=== PATIENT | female | born 1955 | race Caucasian/White ===

== ENCOUNTER 2017-03-27 10:06 | Emergency (ER) | payer OTHER, MEDICAID ==
--- NOTE | 2017-03-27 10:29 | EDPHY ---
H & P Stated Complaint: sharp head pain off and on starting last night Time Seen by Provider: 03/27/17 10:09 HPI/ROS: Chief Complaint: Pain in head HPI: 61-year-old woman started having pain in the right side of her head just above and in front of her right here last night. Pain initially started coming every 15 minutes or so. It last few seconds and completely goes away. It feels like a sharp stabbing pain at worst a 10/10. Sometimes feels she might be getting some tearing in that eye but has not. Pain is persisted till today. It is now occurring anywhere from every 5 minutes to 15 minutes. She has not have a history of similar pain in the past. In between episodes she is completely at her baseline. No nausea or vomiting. No vision or hearing changes. No skin rashes. No falls or injuries. ROS: 10 point Review of Systems is negative except as noted in the HPI. PMH: Hypertension Social History: No smoking, no alcohol, no recreational drug use Family History: non-contributory Physical Exam: Gen: Awake, Alert, No Distress HEENT: Nose: no rhinorrhea Eyes: PERRLA, EOMI Mouth: Moist mucosa Neck: Supple, no JVD Chest: nontender, lungs clear to auscultation Heart: S1, S2 normal, no murmur Abd: Soft, non-tender, no guarding Back: no CVA tenderness, no midline tenderness Ext: no edema, non-tender Skin: no rash Neuro: CN II-XII intact, Sensation grossly intact, Strength 5/5 in bilateral upper and lower extremities - Personal History Current Tetanus/Diphtheria Vaccine: Yes - Medical/Surgical History Hx Asthma: No Hx Chronic Respiratory Disease: No Hx Diabetes: No Hx Cardiac Disease: No Hx Renal Disease: Yes Hx Cirrhosis: No Hx Alcoholism: No Hx HIV/AIDS: No Hx Splenectomy or Spleen Trauma: No Other PMH: kidney failure 2013,anxiety and htn. surg-ankle,tubal and oral - Social History Smoking Status: Current every day smoker Constitutional: Initial Vital Signs Temperature (C) 36.9 C 03/27/17 10:09 Heart Rate 84 03/27/17 10:09 Respiratory Rate 18 03/27/17 10:09 Blood Pressure 177/112 H 03/27/17 10:09 O2 Sat (%) 95 03/27/17 10:09 O2 Delivery Mode Room Air Allergies/Adverse Reactions: Sulfa (Sulfonamide Antibiotics) Allergy (Mild, Verified 03/27/17 10:13) Other-Enter Comments Home Medications: Medication Instructions Recorded Carbamazepine 100 mg PO BID #14 cpmp.12hr 03/27/17 HYDROCODONE BIT/ACETAMINOPHEN 03/27/17 Propranolol HCl 03/27/17 Medical Decision Making ED Course/Re-evaluation: 61-year-old woman presenting with pain consistent with trigeminal neuralgia. She is having sharp shooting pains which last few seconds that ankle completely away. I do not suspect acute intracranial bleed as the pain comes and goes and she has complete resolution between episodes. She has not have any risk factors for bleed. No symptoms suggestive of infection. She is pain-free during my evaluation. I will start her on carbamazepine and have her follow up with primary care physician early next week. She might need a referral to Neurology. She will return for any worsening symptoms. Departure - Departure Disposition: Home, Routine, Self-Care Clinical Impression: Trigeminal neuralgia Condition: Good Instructions: Trigeminal Neuralgia (ED) Additional Instructions: You may start taking the carbamazepine twice a day if you continue to have shooting headaches. Follow up with primary care physician on Friday for re-evaluation. Return to the emergency department for increasing pain, pain that persists, nausea, vomiting, confusion, or any other concerns. Referrals: Ignacio Caceres MD [Primary Care Provider] - As per Instructions Prescriptions: Carbamazepine 100 mg PO BID #14 cpmp.12hr
[2017-03-27 10:43] VITALS: BP 164/100; PULSE 84; RESP 18; TEMP 98.4; O2SAT 95
== END 2017-03-27 10:33 | disposition home or self-care (01) ==
LOC: CED 10:06
DX: G50.0 Trigeminal neuralgia (principal); I10 Essential (primary) hypertension; F17.200 Nicotine dependence, unspecified, uncomplicated

== ENCOUNTER 2017-05-31 14:27 | Emergency (ER) | payer OTHER, MEDICAID ==
[2017-05-31 14:46] VITALS: RESP 16; O2SAT 90
[2017-05-31] MEDS ORDERED: NS 1,000 ML IV ONE (15:11)
[2017-05-31 15:32] LABS: % IMMATURE GRANULYOCYTES 0.2 % (0.0-1.1); ABSOLUTE IMMATURE GRANULOCYTES 0.01 10^3/uL (0.00-0.10); ADD DIFF? NO; ADD MORPH? NO; ADD SCAN? NO; ATYPICAL LYMPHOCYTE FLAG 0 (0-99); FRAGMENT RBC FLAG 0 (0-99); HEMATOCRIT 46.6 % (38.0-47.0); LEFT SHIFT FLG 0 (0-99); LIPEMIA HEMOLYSIS FLAG 90 (0-99); MEAN CELL HEMOGLOBIN 33.9 pg (27.9-34.1); MEAN CELL HEMOGLOBIN CONCENTR. 34.3 g/dL (32.4-36.7); MEAN CELL VOLUME 98.7 fL (81.5-99.8); MEAN PLATELET VOLUME 8.6 fL (8.7-11.7); PLATELET CLUMPS FLAG 0 (0-99); PLATELET COUNT 291 10^3/uL (150-400); RED BLOOD CELL COUNT 4.72 10^6/uL (4.18-5.33); RED CELL DISTRIBUTION WIDTH 12.8 % (11.5-15.2)
[2017-05-31 15:45] LABS: CREATININE 2.4 mg/dL (0.6-1.0); GLOMERULAR FILTRATION RATE 20; GLUCOSE 112 mg/dL (70-100); POTASSIUM 3.1 mEq/L (3.5-5.2); SODIUM 140 mEq/L (134-144)
--- NOTE | 2017-05-31 15:46 | EDPHY ---
HPI/HX/ROS/PE/MDM Narrative: CHIEF COMPLAINT: "I would like to get my creatinine checked." HPI: The patient is a 61-year-old female who tells me that she had a history of what sounds like acute renal insufficiency approximately 8 years ago. Yesterday she noted that she was more tired than usual and would like to get her creatinine checked today. She denies any flank pain, change in urination or pain with urination. She recently completed a course of antibiotics which sounds like Keflex, given to her by her primary care physician for 2 small ulcerations on her face that have been present for 1 month. Additionally, the patient complains of cracks in the skin of her hands secondary to dry weather which have been present for months as well. REVIEW OF SYSTEMS: Aside from elements discussed in the HPI, a comprehensive 10-point review of systems was reviewed and is negative. PMH: Includes high blood pressure, history of kidney problems. Chart review indicates history of bulimia and suspected diuretic abuse. SOCIAL HISTORY: Denies alcohol or drug abuse. PHYSICAL EXAM: General:Patient is alert, in no acute distress. ENT:Eyes are normal to inspection. ENT inspection normal. Neck: Normal inspection. Full range of motion. Respiratory:No respiratory distress. Breath sounds normal bilaterally. Cardiovascular: Regular rate and rhythm. Strong peripheral pulses. Normal cap refill. Abdomen:The abdomen is nontender to palpation. There are no peritoneal signs. There are normal bowel sounds. Back: Normal to inspection. No tenderness to palpation. Skin: Multiple cracks noted in scan on fingers consistent with dried out skin. 2 small ulcerations are noted on the patient's cheek but are largely covered by makeup. There is no tenderness nor any evidence of discharge or fluctuance. Extremities: Normal appearance. Full range of motion. Neuro: Oriented x3. Normal motor function. Normal sensory function. ED Course: Initial labs reveal elevated creatinine and decreased potassium. She was treated with 1L IVNS. I had an extensive discussion with her regarding treatment, and offered her further hydration and re-check of creatinine here tonight, with potential discharge home if improved or admission to the hospital if not. The patient declines this however, and feels that she would like to be admitted overnight to the hospital. She declines admission to [facility], but is willing to go to [facility]. I called there and spoke with Dr. Fontaine, hospitalist, who has agreed to accept this patient. On re-evaluation, vitals are stable. 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 Her previous chart indicates history of bulimia and there was suspicion of diuretic abuse. - Data Points Laboratory Results: Laboratory Results 05/31/17 15:24 05/31/17 15:24 05/31/17 05/31/17 15:24 15:24 WBC 5.45 10^3/uL 10^3/uL (3.80-9.50) RBC 4.72 10^6/uL 10^6/uL (4.18-5.33) Hgb 16.0 g/dL g/dL (12.6-16.3) Hct 46.6 % % (38.0-47.0) MCV 98.7 fL fL (81.5-99.8) MCH 33.9 pg pg (27.9-34.1) MCHC 34.3 g/dL g/dL (32.4-36.7) RDW 12.8 % % (11.5-15.2) Plt Count 291 10^3/uL 10^3/uL (150-400) MPV 8.6 fL L fL (8.7-11.7) Neut % (Auto) 44.8 % % (39.3-74.2) Lymph % (Auto) 42.8 % % (15.0-45.0) [place] % (Auto) 9.2 % % (4.5-13.0) Eos % (Auto) 2.4 % % (0.6-7.6) Baso % (Auto) 0.6 % % (0.3-1.7) Nucleat RBC Rel Count 0.0 % % (0.0-0.2) Absolute Neuts (auto) 2.45 10^3/uL 10^3/uL (1.70-6.50) Absolute Lymphs (auto) 2.33 10^3/uL 10^3/uL (1.00-3.00) Absolute Monos (auto) 0.50 10^3/uL 10^3/uL (0.30-0.80) Absolute Eos (auto) 0.13 10^3/uL 10^3/uL (0.03-0.40) Absolute Basos (auto) 0.03 10^3/uL 10^3/uL (0.02-0.10) Absolute Nucleated RBC 0.00 10^3/uL 10^3/uL (0-0.01) Immature Gran % 0.2 % % (0.0-1.1) Immature Gran # 0.01 10^3/uL 10^3/uL (0.00-0.10) Sodium 140 mEq/L mEq/L (134-144) Potassium 3.1 mEq/L L mEq/L (3.5-5.2) Chloride 73 mEq/L L mEq/L (97-110) Carbon Dioxide > 40 mEq/l H* mEq/l (22-31) Anion Gap 27 mEq/L H mEq/L (8-16) BUN 65 mg/dL H mg/dL (7-23) Creatinine 2.4 mg/dL H mg/dL (0.6-1.0) Estimated GFR 20 Glucose 112 mg/dL H mg/dL (70-100) Calcium 10.0 mg/dL mg/dL (8.5-10.4) Medications Given: Discontinued Medications Sodium Chloride (Ns) 1,000 mls @ 0 mls/hr IV EDNOW ONE; Wide Open PRN Reason: Protocol Stop: 05/31/17 15:12 Last Admin: 05/31/17 15:38 Dose: 1,000 mls General Time Seen by Provider: 05/31/17 14:57 Initial Vital Signs: Initial Vital Signs Temperature (C) 36.4 C 05/31/17 14:43 Heart Rate 70 05/31/17 14:43 Respiratory Rate 16 05/31/17 14:43 Blood Pressure 102/62 05/31/17 14:43 O2 Sat (%) 90 L 05/31/17 14:43 O2 Delivery Mode Room Air Allergies/Adverse Reactions: Sulfa (Sulfonamide Antibiotics) Allergy (Mild, Verified 03/27/17 10:13) Other-Enter Comments Home Medications: Medication Instructions Recorded HYDROCODONE BIT/ACETAMINOPHEN 03/27/17 Propranolol HCl 03/27/17 Departure - Departure Disposition: Acute Care Hospital Not [facility] Clinical Impression: Acute kidney injury, Hypokalemia Condition: Fair Referrals: Ignacio Caceres MD [Primary Care Provider] - As per Instructions
[2017-05-31 15:48] LABS: ANION GAP 27 mEq/L (8-16)
[2017-05-31 15:57] LABS: CARBON DIOXIDE > 40 mEq/l (22-31); CHLORIDE 73 mEq/L (97-110)
[2017-05-31 17:35] VITALS: BP 116/75; PULSE 68; TEMP 98.1
== END 2017-05-31 17:15 | disposition short-term general hospital (02) ==
LOC: CED 14:27
DX: N17.9 Acute kidney failure, unspecified (principal); E87.6 Hypokalemia; E86.9 Volume depletion, unspecified
CPT/HCPCS: 80048-PO; 85025-PO

== ENCOUNTER 2017-08-02 15:00 | Emergency (ER) | payer OTHER, MEDICAID ==
[2017-08-02 15:12] VITALS: RESP 16; TEMP 97.5
--- NOTE | 2017-08-02 15:14 | CPEKG ---
Heart Rate: 72 RR Interval: 833 P-R Interval: 208 QRSD Interval: 84 QT Interval: 432 QTC Interval: 473 P Handley: 71 QRS Handley: 23 T Wave Handley: -10 EKG Severity - ABNORMAL ECG - EKG Impression: SINUS RHYTHM EKG Impression: PROBABLE LEFT ATRIAL ABNORMALITY EKG Impression: NONSPECIFIC T ABNORMALITIES, LATERAL LEADS Electronically Signed By: Ruslan Aaron 04-Aug-2017 12:28:09
[2017-08-02] MEDS ORDERED: NS 1,000 ML IV ONE ×2 (15:48→15:50)
[2017-08-02 15:54] LABS: PLATELET COUNT 307 10^3/uL (150-400)
--- NOTE | 2017-08-02 16:48 | EDPHY ---
H & P Time Seen by Provider: 08/02/17 15:04 HPI/ROS: 62-year-old male presents complaining of approximately 4 days of dizziness, additionally with some cough. She states she has chills though admits she is always cold. She denies fevers she denies chest pain. Patient states her current medications are only propanolol 60 mg three times daily and hydrocodone that she takes for chronic back pain. Denies nausea, vomiting, diarrhea. She states she was [facility]. Review of systems As per HPI General no fever no chills no weakness HEENT no eye pain no eye discharge. No eye redness, no sore throat Respiratory positive cough, no shortness of breath Cardiac no chest pain, no peripheral edema GI no abdominal pain, no diarrhea, no constipation, no nausea, no vomiting no flank pain, no hematuria, no dysuria Musculoskeletal no myalgias, no joint pain Heme no easy bruising, no easy bleeding Endo no polyuria, no polydipsia Skin no rashes, no pruritus Neuro no syncope, positive dizziness no headaches Psych is no suicidal ideation, no homicidal ideation Past Medical/Surgical History: Hypertension Renal insufficiency Social History: Smokes cigarettes daily Smoking Status: Current every day smoker Physical Exam: 62-year-old female cachectic, appears older than stated age Hypertensive, however nontoxic appearance, afebrile HEENT atraumatic normocephalic, extraocular muscles intact, anicteric Oropharynx negative for erythema negative exudate, tolerating her own secretions Neck supple no meningismus Lungs clear to auscultation bilaterally Heart regular rate and rhythm without murmur rub or gallop Abdomen nondistended normoactive bowel sounds soft nontender Back no CVA tenderness, no step-offs, no spinal tenderness Extremities no cyanosis clubbing or edema Neuro alert and oriented, no focal deficits Constitutional: Initial Vital Signs Temperature (C) 36.4 C 08/02/17 15:07 Heart Rate 72 08/02/17 15:07 Respiratory Rate 16 08/02/17 15:07 Blood Pressure 98/60 L 08/02/17 15:07 O2 Sat (%) 92 08/02/17 15:07 O2 Delivery Mode Nasal Cannula O2 (L/minute) 2 Allergies/Adverse Reactions: Sulfa (Sulfonamide Antibiotics) Allergy (Mild, Verified 08/02/17 15:13) Other-Enter Comments Home Medications: Medication Instructions Recorded HYDROCODONE BIT/ACETAMINOPHEN 03/27/17 Propranolol HCl 03/27/17 Medical Decision Making - Diagnostics Imaging Results: Imaging Impressions Chest X-Ray 08/02/17 15:49 Impression: Stable and normal. ED Course/Re-evaluation: Patient seen and evaluated for dizziness, noted to be hypotensive. Given IV fluids 2 L normal saline Labs sent CBC within normal limits Influenza negative CMP markedly abnormal With an elevated creatinine to 3.7 Lactate within normal limits Chest x-ray no consolidation Impression Acute kidney injury Severe dehydration Plan Transfer to be admitted at [facility]. Discussed with Dr Isela Nair. Pt was to be admitted, we were awaiting a bed assignment at [facility] when she decided she needed to leave urgently. She refused admission, and signed AMA. TIMUR Kong contacted [facility] to make them aware of this change. We encouraged the patient to seek care tonight if possible. Differential Diagnosis: dehydration, kendrick, sepsis, orthostasis - Data Points Laboratory Results: Laboratory Results 08/02/17 15:22 08/02/17 15:22 08/02/17 08/02/17 08/02/17 17:00 15:50 15:50 WBC RBC Hgb Hct MCV MCH MCHC RDW Plt Count MPV Neut % (Auto) Lymph % (Auto) Cook % (Auto) Eos % (Auto) Baso % (Auto) Nucleat RBC Rel Count Absolute Neuts (auto) Absolute Lymphs (auto) Absolute Monos (auto) Absolute Eos (auto) Absolute Basos (auto) Absolute Nucleated RBC Immature Gran % Immature Gran # VBG Lactic Acid 1.8 mmol/L mmol/L (0.7-2.1) Sodium Potassium Chloride Carbon Dioxide Anion Gap BUN Creatinine Estimated GFR Glucose Calcium Magnesium Total Bilirubin AST ALT Alkaline Phosphatase Creatine Kinase Troponin I Total Protein Albumin TSH Urine Color YELLOW Urine Appearance CLEAR Urine pH 8.0 H (5.0-7.5) Ur Specific [place] 1.010 (1.002-1.030) Urine Protein NEGATIVE (NEGATIVE) Urine Ketones NEGATIVE (NEGATIVE) Urine Blood NEGATIVE (NEGATIVE) Urine Nitrate NEGATIVE (NEGATIVE) Urine Bilirubin NEGATIVE (NEGATIVE) Urine Urobilinogen 0.2 EU EU (0.2-1.0) Ur Leukocyte Esterase NEGATIVE (NEGATIVE) Urine Glucose NEGATIVE (NEGATIVE) Influenza A,B Rapid NEGATIVE FOR FLU (NEGATIVE) 08/02/17 08/02/17 08/02/17 15:22 15:22 15:22 WBC 4.69 10^3/uL 10^3/uL (3.80-9.50) RBC 4.44 10^6/uL 10^6/uL (4.18-5.33) Hgb 15.2 g/dL g/dL (12.6-16.3) Hct 44.0 % % (38.0-47.0) MCV 99.1 fL fL (81.5-99.8) MCH 34.2 pg H pg (27.9-34.1) MCHC 34.5 g/dL g/dL (32.4-36.7) RDW 13.2 % % (11.5-15.2) Plt Count 307 10^3/uL 10^3/uL (150-400) MPV 9.1 fL fL (8.7-11.7) Neut % (Auto) 67.7 % % (39.3-74.2) Lymph % (Auto) 21.7 % % (15.0-45.0) Cook % (Auto) 8.5 % % (4.5-13.0) Eos % (Auto) 1.7 % % (0.6-7.6) Baso % (Auto) 0.2 % L % (0.3-1.7) Nucleat RBC Rel Count 0.0 % % (0.0-0.2) Absolute Neuts (auto) 3.17 10^3/uL 10^3/uL (1.70-6.50) Absolute Lymphs (auto) 1.02 10^3/uL 10^3/uL (1.00-3.00) Absolute Monos (auto) 0.40 10^3/uL 10^3/uL (0.30-0.80) Absolute Eos (auto) 0.08 10^3/uL 10^3/uL (0.03-0.40) Absolute Basos (auto) 0.01 10^3/uL L 10^3/uL (0.02-0.10) Absolute Nucleated RBC 0.00 10^3/uL 10^3/uL (0-0.01) Immature Gran % 0.2 % % (0.0-1.1) Immature Gran # 0.01 10^3/uL 10^3/uL (0.00-0.10) VBG Lactic Acid Sodium 137 mEq/L mEq/L (135-145) Potassium 3.3 mEq/L L mEq/L (3.5-5.2) Chloride 67 mEq/L L mEq/L (97-110) Carbon Dioxide 47 mEq/l H* mEq/l (22-31) Anion Gap 23 mEq/L H mEq/L (8-16) BUN 85 mg/dL H mg/dL (7-23) Creatinine 3.6 mg/dL H mg/dL (0.6-1.0) Estimated GFR 13 Glucose 126 mg/dL H mg/dL (70-100) Calcium 9.4 mg/dL mg/dL (8.5-10.4) Magnesium 2.2 mg/dL mg/dL (1.6-2.3) Total Bilirubin 0.8 mg/dL mg/dL (0.1-1.4) AST 26 IU/L IU/L (14-46) ALT 32 IU/L IU/L (9-52) Alkaline Phosphatase 88 IU/L IU/L (38-126) Creatine Kinase 54 IU/L IU/L (0-156) Troponin I < 0.012 ng/mL ng/mL (0.000-0.034) Total Protein 7.9 g/dL g/dL (6.3-8.2) Albumin 4.3 g/dL g/dL (3.5-5.0) TSH 0.571 uIU/mL uIU/mL (0.465-4.680) Urine Color Urine Appearance Urine pH Ur Specific [place] Urine Protein Urine Ketones Urine Blood Urine Nitrate Urine Bilirubin Urine Urobilinogen Ur Leukocyte Esterase Urine Glucose Influenza A,B Rapid Medications Given: Discontinued Medications Sodium Chloride (Ns) 1,000 mls @ 0 mls/hr IV ONCE ONE PRN Reason: Wide Open Stop: 08/02/17 15:49 Last Admin: 08/02/17 15:30 Dose: 1,000 mls Sodium Chloride (Ns) 1,000 mls @ 0 mls/hr IV ONCE ONE PRN Reason: Wide Open Stop: 08/02/17 15:51 Last Admin: 08/02/17 16:32 Dose: 1,000 mls Departure - Departure Disposition: Against Medical Advice Clinical Impression: KENDRICK (acute kidney injury) Condition: Fair Referrals: Ignacio aCceres MD [Primary Care Provider] - As per Instructions
[2017-08-02 18:16] VITALS: BP 93/61; PULSE 70; O2SAT 96
== END 2017-08-02 18:38 | disposition left against medical advice (07) ==
LOC: CED 15:00
DX: N17.9 Acute kidney failure, unspecified (principal); I10 Essential (primary) hypertension; F17.210 Nicotine dependence, cigarettes, uncomplicated
CPT/HCPCS: 71046-PO; 80053-PO; 81003-PO; 82550-PO; 83605-PO; 83735-PO; 84443-PO; 84484-PO; 85025-PO; 87400-PO

== ENCOUNTER 2017-08-05 14:24 | Emergency (ER) | payer OTHER, MEDICAID ==
[2017-08-05 14:31] VITALS: TEMP 98.2
--- NOTE | 2017-08-05 14:47 | EDPHY ---
H & P Time Seen by Provider: 08/05/17 14:45 HPI/ROS: CHIEF COMPLAINT: Dizziness and here for creatinine recheck HISTORY OF PRESENT ILLNESS: Patient seen here on August 02 and was evaluated for dizziness, had an elevated creatinine of 3.6. At that time the chart says that she declined admission, although chart reflects that patient had been accepted as an inpatient already. Patient presents still feeling a little bit lightheaded. It is a little bit positional, slightly worse on standing but without fainting or syncope or palpitations. Stable since 2 days ago. Definitely not vertigo. Denies actual syncope or passing out. She is concerned that her creatinine is still elevated , she states she would like that rechecked. Creatinine on May 31 of 2.4 , creatinine 10/21/14 is 1.0, 10/19/14 1.8, 12/16/15 1.3. She has been increasing oral fluid intake and thinks that it is probably better, but is worried that it could be still elevated. Still urinating without dysuria or hematuria. REVIEW OF SYSTEMS: Eye: no change in vision ENT: no sore throat Cardiac: no chest pain or syncope Pulmonary: no cough or SOB, triage vital Signs note the oxygen saturation 88%, no respiratory symptoms Abdomen: denies vomiting, diarrhea, abdominal pain Musculoskeletal: Chronic back pain on hydrocodone, unchanged Skin: no rash Neuro: Nurse's notes say 10/10 headache but the patient tells me she has chronic headaches and today's is only just a little bit worse than usual. Constitutional: no fever : no urinary symptoms A comprehensive 10 point review of systems is otherwise negative aside from elements mentioned in the history of present illness. PAST MEDICAL HISTORY: Hypertension, renal insufficiency, history of bulimia but denies vomiting last 48 hr when directly asked Social history: Cigarette smoker, says her daughter drove her here General Appearance: Alert and conversant, cooperative. Eyes: No scleral icterus. ENT, Mouth: Slightly dry mucous membranes Respiratory: Normal respiratory effort, breath sounds equal, lungs are clear to auscultation. Fluent speech with no respiratory distress or retractions. Cardiovascular: Regular rate and rhythm. Gastrointestinal: Abdomen is soft and non tender. Neurological: Alert, face symmetric, normal motor and sensory in extremities. Normal [id number] bilaterally and no pronator drift. Skin: Warm and dry, no rashes. Musculoskeletal: No peripheral edema. Psychiatric: Not agitated. Emergency Department course/MDM: Patient presents with dizziness lightheadedness, query volume depletion given clinical exam and her recent lab values. I do not think that this represents central or peripheral vertigo, or cardiac dysrhythmia. Patient's oxygen saturation would be consistent with her longstanding smoking history, and in a complete absence of Respiratory symptoms or abnormal findings on lung exam metal think this does not require further investigation at this time. 1525: Lab resulted includes CO2 48, sodium 144 potassium 3.3, chloride 82; would suggest possibility of vomiting though the patient denies, since on lab has hypochloremic alkalosis. Her BUN and creatinine are 44 and 2.1 which is actually improved from 2 days ago; reviewed with the patient at this time, she would prefer to avoid admission which I think is reasonable. NS 2000ml IV, discussed with PCP clinic. 1535: Discussed with Dr. Caceres, confirms medical history of bulimia, agrees with hydration and discharge, the clinic will call patient to arrange followup with her this week in the next 2-3 days. Smoking Status: Current every day smoker Constitutional: Initial Vital Signs Temperature (C) 36.8 C 08/05/17 14:28 Heart Rate 91 08/05/17 14:28 Respiratory Rate 16 08/05/17 14:28 Blood Pressure 127/70 H 08/05/17 14:28 O2 Sat (%) 88 L 08/05/17 14:28 O2 Delivery Mode Room Air Allergies/Adverse Reactions: Sulfa (Sulfonamide Antibiotics) Allergy (Mild, Verified 08/05/17 14:32) Other-Enter Comments Home Medications: Medication Instructions Recorded HYDROCODONE BIT/ACETAMINOPHEN 03/27/17 Propranolol HCl 03/27/17 MIRTAZAPINE 08/05/17 Medical Decision Making Differential Diagnosis: Differential for dizzy and lightheaded considered including but not limited to dehydration, cardiac problem, hypoglycemia, other metabolic abnormality. - Data Points Laboratory Results: Laboratory Results 08/05/17 14:55 08/05/17 14:55 08/05/17 08/05/17 14:55 14:55 WBC 4.72 10^3/uL 10^3/uL (3.80-9.50) RBC 4.17 10^6/uL L 10^6/uL (4.18-5.33) Hgb 14.4 g/dL g/dL (12.6-16.3) Hct 42.2 % % (38.0-47.0) MCV 101.2 fL H fL (81.5-99.8) MCH 34.5 pg H pg (27.9-34.1) MCHC 34.1 g/dL g/dL (32.4-36.7) RDW 13.5 % % (11.5-15.2) Plt Count 291 10^3/uL 10^3/uL (150-400) MPV 8.4 fL L fL (8.7-11.7) Neut % (Auto) 51.3 % % (39.3-74.2) Lymph % (Auto) 37.9 % % (15.0-45.0) [place] % (Auto) 6.8 % % (4.5-13.0) Eos % (Auto) 3.4 % % (0.6-7.6) Baso % (Auto) 0.4 % % (0.3-1.7) Nucleat RBC Rel Count 0.0 % % (0.0-0.2) Absolute Neuts (auto) 2.42 10^3/uL 10^3/uL (1.70-6.50) Absolute Lymphs (auto) 1.79 10^3/uL 10^3/uL (1.00-3.00) Absolute Monos (auto) 0.32 10^3/uL 10^3/uL (0.30-0.80) Absolute Eos (auto) 0.16 10^3/uL 10^3/uL (0.03-0.40) Absolute Basos (auto) 0.02 10^3/uL 10^3/uL (0.02-0.10) Absolute Nucleated RBC 0.00 10^3/uL 10^3/uL (0-0.01) Immature Gran % 0.2 % % (0.0-1.1) Immature Gran # 0.01 10^3/uL 10^3/uL (0.00-0.10) Sodium 144 mEq/L mEq/L (135-145) Potassium 3.3 mEq/L L mEq/L (3.5-5.2) Chloride 82 mEq/L L D mEq/L (97-110) Carbon Dioxide 48 mEq/l H* mEq/l (22-31) Anion Gap 14 mEq/L mEq/L (8-16) BUN 44 mg/dL H mg/dL (7-23) Creatinine 2.1 mg/dL H mg/dL (0.6-1.0) Estimated GFR 24 Glucose 106 mg/dL H mg/dL (70-100) Calcium 9.8 mg/dL mg/dL (8.5-10.4) Medications Given: Discontinued Medications Sodium Chloride (Ns) 1,000 mls @ 0 mls/hr IV EDNOW ONE; Wide Open PRN Reason: Protocol Stop: 08/05/17 15:29 Last Admin: 08/05/17 15:37 Dose: 1,000 mls Sodium Chloride (Ns) 1,000 mls @ 0 mls/hr IV EDNOW ONE; Wide Open PRN Reason: Protocol Stop: 08/05/17 15:29 Last Admin: 08/05/17 15:38 Dose: 1,000 mls Departure - Departure Disposition: Home, Routine, Self-Care Clinical Impression: Dehydration Condition: Good Instructions: Dehydration (ED) Additional Instructions: Keep drinking lots of fluids. You have followup at your clinic later this week. Creatnine 3.6 on 08/02, it is 2.1 today. Referrals: Ignacio Caceres MD [Primary Care Provider] - As per Instructions (Your clinic will call [phone] the number you gave to arrange an office followup visit this week in the next 2-3 days.)
[2017-08-05 15:00] LABS: PLATELET COUNT 291 10^3/uL (150-400)
[2017-08-05] MEDS ORDERED: NS 1,000 ML IV ONE ×2 (15:28)
[2017-08-05 16:12] VITALS: RESP 18; O2SAT 90
[2017-08-05 16:36] VITALS: BP 127/70; PULSE 85
== END 2017-08-05 16:34 | disposition home or self-care (01) ==
LOC: CED 14:24
DX: E86.0 Dehydration (principal); I10 Essential (primary) hypertension; F17.200 Nicotine dependence, unspecified, uncomplicated
CPT/HCPCS: 80048-PO; 85025-PO

== ENCOUNTER 2017-10-26 11:17 | Inpatient (IN) | payer OTHER, MEDICAID ==
[2017-10-26] MEDS ORDERED: NS 1,000 ML IV ONE (11:55)
[2017-10-26 12:01] LABS: PLATELET COUNT 258 10^3/uL (150-400)
--- NOTE | 2017-10-26 12:09 | EDPHY ---
H & P Time Seen by Provider: 10/26/17 11:22 HPI/ROS: CHIEF COMPLAINT: Weakness, dizziness HISTORY OF PRESENT ILLNESS: Patient presents with complaints of weakness, lightheadedness that have been worse since about yesterday. She has had multiple visits to this facility in the past 6 months for similar symptoms and has history of significant renal injury. She states that she was at [facility] in September for similar symptoms and had a creatinine 3.2 at that time. Last time she saw her primary care physician was before that hospitalization. She denies any nausea, vomiting, diarrhea. She denies self- induced vomiting. She denies any misuse of diuretics or other weight loss medications. She has had no fever, cold symptoms, dysuria. She denies drug use , does admit to tobacco and daily alcohol. She states she has a headache"all the time"and has had about of week of"pain in my head"and"bubbling in my head", which is similar to symptoms that brought her to this emergency department in May. REVIEW OF SYSTEMS: Constitutional: No fever, no chills. Eyes: No discharge. ENT: No sore throat. Cardiovascular: No chest pain, no palpitations. Respiratory: No cough, no shortness of breath. Gastrointestinal: No abdominal pain, no vomiting. Genitourinary: No dysuria. Musculoskeletal: No back pain. Skin: No rashes. Neurological: No headache. General Appearance: Alert, thin woman in no distress. Hypoxic on arrival. Eyes: Pupils equal and round no pallor or injection. ENT, Mouth: Mucous membranes moist. Respiratory: There are no retractions, lungs are clear to auscultation. Cardiovascular: Regular rate and rhythm. Normal femoral pulses. Gastrointestinal: Abdomen is soft and nontender, no masses, bowel sounds normal. Neurological: Awake, alert, oriented. No focal neurologic deficits noted. Skin: Warm and dry, no rashes. Musculoskeletal: Neck is supple nontender. Extremities are symmetrical, full range of motion, no edema. Psychiatric: Patient is oriented X 3, there is no agitation. Medical/surgical history: Renal insufficiency, chronic back pain, trigeminal neuralgia, bulimia. Surgeries include orthopedic surgery on the ankle, tubal ligation. Recent admission at [facility] with negative renal ultrasound per patient. Social history: Smokes tobacco. Denies drugs. Daily drinker. Smoking Status: Current every day smoker Constitutional: Initial Vital Signs Temperature (C) 36.6 C 10/26/17 11:23 Heart Rate 82 10/26/17 11:23 Respiratory Rate 18 10/26/17 11:23 Blood Pressure 114/72 10/26/17 11:23 O2 Sat (%) 84 L 10/26/17 11:23 O2 Delivery Mode Nasal Cannula O2 (L/minute) 2 Allergies/Adverse Reactions: Sulfa (Sulfonamide Antibiotics) Allergy (Mild, Verified 10/26/17 11:23) Other-Enter Comments Home Medications: Medication Instructions Recorded HYDROCODONE BIT/ACETAMINOPHEN 03/27/17 Propranolol HCl 03/27/17 MIRTAZAPINE 08/05/17 Medical Decision Making ED Course/Re-evaluation: Discussed with Dr. Horton, hospitalist, accepted patient for admission. 12:50 Differential Diagnosis: Differential diagnosis includes but is not limited to vertigo, hyponatremia, acute renal failure, dehydration, hypokalemia. Patient with complex presentation and multiple lab abnormalities consistent with a contraction alkalosis likely from chronic respiratory insufficiency. Does use chronic opiates and EtOH. No evidence of significant hemodynamic instability. No shortness of breath or chest pain to suggest ACS, pneumoina, PE. Although she denies previous diagnosis likely has some COPD from her smoking history. Patient will be admitted to [facility] under the care of Dr. Horton. EMTALA and other transfer paperwork completed. Old records from [facility] requested. - Data Points Laboratory Results: Laboratory Results 10/26/17 11:45 10/26/17 11:45 10/26/17 10/26/17 11:45 11:45 WBC 3.67 10^3/uL L 10^3/uL (3.80-9.50) RBC 4.20 10^6/uL 10^6/uL (4.18-5.33) Hgb 14.3 g/dL g/dL (12.6-16.3) Hct 43.2 % % (38.0-47.0) MCV 102.9 fL H fL (81.5-99.8) MCH 34.0 pg pg (27.9-34.1) MCHC 33.1 g/dL g/dL (32.4-36.7) RDW 14.9 % % (11.5-15.2) Plt Count 258 10^3/uL 10^3/uL (150-400) MPV 8.6 fL L fL (8.7-11.7) Neut % (Auto) 54.2 % % (39.3-74.2) Lymph % (Auto) 28.6 % % (15.0-45.0) [place] % (Auto) 14.7 % H % (4.5-13.0) Eos % (Auto) 1.9 % % (0.6-7.6) Baso % (Auto) 0.3 % % (0.3-1.7) Nucleat RBC Rel Count 0.0 % % (0.0-0.2) Absolute Neuts (auto) 1.99 10^3/uL 10^3/uL (1.70-6.50) Absolute Lymphs (auto) 1.05 10^3/uL 10^3/uL (1.00-3.00) Absolute Monos (auto) 0.54 10^3/uL 10^3/uL (0.30-0.80) Absolute Eos (auto) 0.07 10^3/uL 10^3/uL (0.03-0.40) Absolute Basos (auto) 0.01 10^3/uL L 10^3/uL (0.02-0.10) Absolute Nucleated RBC 0.00 10^3/uL 10^3/uL (0-0.01) Immature Gran % 0.3 % % (0.0-1.1) Immature Gran # 0.01 10^3/uL 10^3/uL (0.00-0.10) Sodium 137 mEq/L mEq/L (135-145) Potassium 2.9 mEq/L L mEq/L (3.5-5.2) Chloride 65 mEq/L L mEq/L (97-110) Carbon Dioxide 55 mEq/l H* mEq/l (22-31) Anion Gap 17 mEq/L H mEq/L (8-16) BUN 52 mg/dL H mg/dL (7-23) Creatinine 3.7 mg/dL H mg/dL (0.6-1.0) Estimated GFR 12 Glucose 116 mg/dL H mg/dL (70-100) Calcium 8.7 mg/dL mg/dL (8.5-10.4) Medications Given: Discontinued Medications Sodium Chloride (Ns) 1,000 mls @ 0 mls/hr IV ONCE ONE; Wide Open PRN Reason: Protocol Stop: 10/26/17 11:56 Last Admin: 10/26/17 12:07 Dose: 1,000 mls Potassium Chloride (Potassium Chloride Oral Liquid) 40 meq PO EDNOW ONE Stop: 10/26/17 13:05 Last Admin: 10/26/17 13:24 Dose: 40 meq Departure - Departure Disposition: [facility] Acute Condition: Serious
[2017-10-26] MEDS ORDERED: POTASSIUM CL 20 MEQ/15 ML UDCUP PO ONE ×2 (13:04→16:29)
[2017-10-26] MEDS ORDERED: ACETAMINOPHEN 325 MG TAB PO PRN (16:04)
[2017-10-26] MEDS ORDERED: ONDANSETRON 4 MG/2 ML VIAL IVP PRN (16:04)
[2017-10-26] MEDS ORDERED: ONDANSETRON DISINTEGRATING 4 MG TAB PO PRN (16:04)
[2017-10-26] MEDS ORDERED: PROTOCOL POTASSIUM 1 DOSE MISC PRN (16:21)
[2017-10-26] MEDS ORDERED: PROTOCOL MAGNESIUM 1 DOSE IV PRN (16:21)
[2017-10-26] MEDS ORDERED: MAGNESIUM SULF 2 GM/WATER 50 ML IV ONE (16:29)
[2017-10-26] MEDS: NS 1,000 ML IV SCH ×2 (16:38→23:44)
[2017-10-26] MEDS: NICOTINE 7 MG/24 HR PATCH TD SCH (16:38)
--- NOTE | 2017-10-26 17:05 | GHP ---
[f rep st] HISTORY AND PHYSICAL DATE OF ADMISSION: 10/26/2017 HISTORY OF PRESENT ILLNESS: The patient is a pleasant 62-year-old female, with a longstanding histor y of bulimia, as well as episodes of acute kidney injury, chronic metabolic alkalosis, and episode of hyperkalemia, who presented to urgent care today with feeling weak and dizzy, as well as some pingin g in her head. She describes it as much like you would hear in a submarine. It started about 3 in t he morning and persisted today. She was seen at [facility] in September for similar symptom s, and her creatinine was 3.2 at that time. Today, her creatinine is again elevated. Her last basel ine creatinine was 2.1 in 07/2017. She says she has a little bit of involuntary vomiting. She denie s diuretic use. Claims to not know what diuretics are. She has not had diarrhea. She has been eating poorly because her medication was inadvertently change d by the pharmacy from hydrocodone to oxycodone. She continues to smoke a couple cigarettes a day. No fever, chills, cough, sputum. REVIEW OF SYSTEMS: Complete 10-point review of systems conducted, negative except as noted in the HP I. PAST MEDICAL HISTORY: 1. Bulimia, likely selective on some level. 2. Episodes of renal failure. 3. Chronic kidney disease with a baseline probably of about 2. 4. Chronic metabolic alkalosis. 5. Hypertension. ALLERGIES: Sulfa. MEDICATIONS ON ADMISSION: [place], mirtazapine, and propranolol. SOCIAL HISTORY: Smokes a couple cigarettes a day. Lives locally and is not a heavy drinker. FAMILY HISTORY: Reviewed and unremarkable. PHYSICAL EXAMINATION: VITAL SIGNS: Blood pressure 110/74, pulse 73, breathing 18 times a minute, 96 % on 2 L, temp 36.9. GENERAL: No acute distress. HEENT: Sclerae anicteric. Oropharynx clear. Mu cous membranes moist. NECK: Supple without lymphadenopathy or JVD. LUNGS: Clear to auscultation b ilaterally. HEART: S1, S2. Not tachycardic. ABDOMEN: Soft, nontender, nondistended. LOWER EXTRE MITIES: Without edema. Calves nontender. SKIN: Without rash. NEUROLOGIC: Nonfocal. LABORATORY DATA: Sodium 137, potassium 2.9, chloride 65, bicarb 55, BUN 52, creatinine 3.7, glucose 116. White count is 3, hematocrit is 43, platelets are 258. UA is alkalemic. I have discussed the case Dr. Vandana Faith. There is no imaging. I reviewed the outside hospital records. ASSESSMENT AND PLAN: A 62-year-old female presents with metabolic alkalosis, hypokalemia, and acute kidney injury, almost certainly due to diuretic abuse. 1. Diuretic abuse. The patient denies this. Will move on. 2. Acute kidney injury. This is hypovolemic kidney injury. Will provide her with normal saline at 125 an hour. 3. Hypokalemia. Patient's whole body volume depleted. It is going to take a bit of time to replete . Will put her on the potassium protocol. Will put her on the electrolyte protocol. Will give her 40 p.o. now. 4. Metabolic alkalosis. This is profound. Again, this is contraction alkalosis. Perform an ABG to follow. 5. Hypomagnesemia. Patient almost certainly has hypomagnesemia. Will put her on magnesium protocol . Will give her a couple grams of magnesium now. 6. Bulimia. Appears to still be active. I did not particularly discuss this with her, as it is sor t of a lifelong pattern for her. 7. Pain. Will continue her chronic pain medicines. 8. Hypertension. Continue propranolol. 9. Prophylaxis. Subcu heparin t.i.d., given her low creatinine clearance. DISPOSITION: Inpatient status. /[id number]/MODL
[2017-10-26] MEDS ORDERED: MAG HYDROX/AL HYDROX/SIMETH 30 ML UDCUP PO PRN (17:17)
[2017-10-26] MEDS ORDERED: LORazepam 2 MG/ML INJ IVP PRN (17:17)
[2017-10-26] MEDS ORDERED: LORazepam 1 MG TAB PO PRN ×2 (17:17→18:24)
[2017-10-26] MEDS ORDERED: FLUMAZENIL 0.5 MG/5 ML MDV IVP PRN (17:17)
--- NOTE | 2017-10-26 17:38 | PDMN ---
Medical Necessity Medical necessity: C/M review: est. > 2 MN LOS leilani eval and TX of acute profound metabolic alkalosis (this is contraction alkalosis), (hypokalemia, acute kidney , hypomagensemia almost certainly due to diuretic abuse (patient denies this) requiring ongoing IV fluids, electrolyte repletion and monitoring, cardiac monitoring, pulse oximetry, supplemental O2, comorbid bulimia - likely selective on some level, chronic pain, hypertension, history of episodes of renal failure, chronic kidney disease with a baseline of probably about 2, chronic metabolic alkalosis, patient seen at [facility] September 2017 for similar symptoms - creatinine was 3.2 at that time per H/P.
[2017-10-26] MEDS ORDERED: FAMOTIDINE 20 MG TAB PO SCH (21:00)
[2017-10-26] MEDS ORDERED: DIPHENOXYLATE/ATROPINE LOMOTIL 1 TAB PO PRN (21:33)
[2017-10-26] MEDS: HEPARIN 5,000 UNIT/0.5 ML SYR SC SCH (21:38)
[2017-10-27] MEDS: HYDROCODONE/APAP 5/325 TAB PO PRN ×3 (00:03→17:27)
[2017-10-27] MEDS ORDERED: POTASSIUM CL 10 MEQ TAB PO ONE ×3 (05:02→21:56)
[2017-10-27] MEDS: NS 1,000 ML IV SCH ×2 (07:07→15:29)
--- NOTE | 2017-10-27 08:55 | SOAPPROG ---
SOAP Progress Note Assessment/Plan: Assessment: Renal consult- please see dictation # [id number] KENDRICK on CKD Metabolic alkalosis- severe chronic HypoK bulimia tobacco use continue IVF- still quite dry will send urine diuretic screen and urine Cr, protein, K frequent labs to follow lytes renal u/s ?psych eval for bulimia if willing Rosita Greene MD [facility] pager [phone] 10/27/17 09:34 Objective: Vital Signs Temp Pulse Resp BP Pulse Ox 36.7 C 68 18 99/60 L 95 10/27/17 08:00 10/27/17 08:00 10/27/17 08:00 10/27/17 08:00 10/27/17 08:00 Laboratory Results 10/27/17 03:43 10/26/17 10/27/17 10/28/17 05:59 05:59 05:59 Intake Total 4480 Output Total 200 Balance 4280 ICD10 Worksheet Patient Problems: Problems Problem Status Onset KENDRICK (acute kidney injury) Acute KENDRICK (acute kidney injury) Acute - ICD10 Problem Qualifiers (1) KENDRICK (acute kidney injury) (2) KENDRICK (acute kidney injury)
[2017-10-27] MEDS ORDERED: ENOXAPARIN 40 MG/0.4 ML SYR SC SCH (09:00)
[2017-10-27] MEDS ORDERED: MULTIVITAMINS 1 EACH TAB PO SCH (09:00)
[2017-10-27] MEDS ORDERED: FOLIC ACID 1 MG TAB PO SCH (09:00)
[2017-10-27] MEDS ORDERED: THIAMINE HCL 500 MG in NS 100 ML IV SCH (09:00)
[2017-10-27] MEDS: HEPARIN 5,000 UNIT/0.5 ML SYR SC SCH ×2 (09:49→21:03)
[2017-10-27] MEDS ORDERED: PROTOCOL K PHOSPHATE 1 DOSE IV PRN (09:50)
[2017-10-27] MEDS ORDERED: PROTOCOL CALCIUM 1 DOSE IV PRN (09:50)
[2017-10-27] MEDS: NICOTINE 7 MG/24 HR PATCH TD SCH (09:50)
--- NOTE | 2017-10-27 09:55 | HOSPPROG ---
Hospitalist Progress Note Assessment/Plan: 62-year-old admitted with lightheadedness hypotension electrolyte abnormalities. She has a history of bulimia and anorexia however denies any symptoms of this currently. # metabolic alkalosis, severe chronic. This is most consistent with diuretic use however the patient adamantly denies this. I do not have another good explanation to explain her electrolyte abnormalities and appreciate renal consult * Continue to hydrate * Monitor all electrolytes and replace as needed * Will need additional midnight stay for the above evaluation * Consider repeating ABG tomorrow # acute on chronic kidney disease with elevated creatinine. Appreciate renal consult and discussed with Nephrology * Continue hydration and follow up labs * Patient is willing to follow up with Nephrology as an outpatient # hypoxemic respiratory failure. Unclear etiology although she does have a long history of tobacco use * Check chest x-ray PA and lateral * Continue nicotine patch * At duo nebs and follow respiratory status and oxygen needs * check D-dime and consider VQ if cxr is unremarkable. # history of diarrhea she does admit to taking Lomotil for diarrhea but will not quantify how much diarrhea she is having. She also admits taking stool softeners intermittently as well # bulimia and anorexia, I discussed with patient possibility of seeing a psychiatrist this admission and she is willing to do that. At this point however she is not admitting to any diuretic use, laxative use, vomiting or bingeing. She is at a loss as to why she keeps getting this dehydrated requiring multiple hospitalizations. * Psych consult # tobacco use, long-term. She has minimal wheezing and slightly hypoxic. Will start duo nebs and increase nicotine patch * DVT prophylaxis: Will start subcu heparin Subjective: Patient new to me and chart reviewed. She denies any use of diuretics or laxatives. She denies bingeing or vomiting. She does feel weird like she needs more nicotine although she only admits to smoking 3 cigarettes a day Objective: Vital Signs Temp Pulse Resp BP Pulse Ox 36.7 C 68 18 99/60 L 95 10/27/17 08:00 10/27/17 08:00 10/27/17 08:00 10/27/17 08:00 10/27/17 08:00 Laboratory Results 10/27/17 03:43 10/26/17 10/27/17 10/28/17 05:59 05:59 05:59 Intake Total 4480 Output Total 200 Balance 4280 ICD10 Worksheet Patient Problems: Problems Problem Status Onset KENDRICK (acute kidney injury) Acute KENDRICK (acute kidney injury) Acute
--- NOTE | 2017-10-27 10:12 | GCON ---
[f rep st] CONSULTATION INPATIENT NEPHROLOGY CONSULTATION. DATE OF CONSULTATION: 10/27/2017 REFERRING PHYSICIAN: Steven Be MD REASON FOR CONSULTATION: Acute on chronic kidney disease. HISTORY OF PRESENT ILLNESS: The patient is a 62-year-old woman with a history of bulimia who present ed to the emergency room last night complaining of dizziness and weakness. She was recently at [facility] in September for similar symptoms. At that time, her creatinine was reportedly 3.2. The last recent creatinine we have on file here in [place] was 2.1 in July 2017. Her labs on adm ission here were notable for a creatinine of 3.7, a bicarb of 55, potassium of 2.9, a chloride of 65. She had been given IV fluids overnight and her creatinine is improved to 2.6. Her blood gas showed a chronic metabolic acidosis with pH of 7.48, bicarb of 43, pCO2 of 66. She denies any significant diarrhea. She denies any nausea, vomiting to me. I tried to gently ask her about her bulimia. She tells me that she was admitted in her 20s for this. She adamantly denies any bingeing or purging epi sodes. She tells me that she simply must have gotten dehydrated. When I asked her about multiple ep isodes over the past few years, she tells me that she is unclear how this is happening. She adamantl y denies any diuretic or herbal weight loss supplement use. She notes that she has been eating and d rinking normal amount. She has been trying to drink Gatorade and vitamin water. She has not had any recent sick contacts. There has been no medication changes other than a change in her narcotic that she thinks has caused this. She denies any kidney disease in her family. She does not take any NSA IDs. She thinks she may have had a remote kidney stone many, many years ago, but is not clear the de tails. She did not require surgical intervention. She denies any dysuria, hematuria, or decreased u rine output. She does not see Psychiatry currently. She does note that she is hungry and has eaten breakfast this morning without any nausea or vomiting. REVIEW OF SYSTEMS: GENERAL: She has had generalized weakness. Denies any fevers. HEENT: Denies a ny sore throat. PULMONARY: Denies shortness of breath. CARDIAC: Denies chest pain. Denies lower extremity edema. GI: She has had a little bit of nausea. She denies any vomiting or diarrhea. She is on Lomotil as an outpatient. She denies any laxative use. She denies any blood in her stools. : She denies any dysuria, hematuria, difficulty voiding. SKIN: Denies any rash. She has had yovani e mild itching. MUSCULOSKELETAL: Denies any joint erythema or warmth. NEUROLOGIC: She had some li ghtheadedness and dizziness and some generalized weakness. No loss of consciousness. ENDOCRINE: No history of diabetes. No polyuria or polydipsia. HEME: No bleeding noted. PAST MEDICAL HISTORY: 1. Bulimia. She had been hospitalized in her 20s. She has had multiple admissions over the past ye ar to multiple hospitals for episodes of dehydration, but she denies that this is related to this. 2. Chronic kidney disease. She has had multiple episodes of acute kidney injury. The most recent c reatinine we had was 2.1 in July of 2017. 3. Chronic metabolic alkalosis. 4. Hypertension. 5. Tobacco abuse. SOCIAL HISTORY: She smokes half a pack a day. She lives in [place]. She denies any alcohol or dr ug abuse. FAMILY HISTORY: Notable for kidney stones. There is no other form of kidney disease in her family a s far as she is aware. CURRENT MEDICATION LIST: Includes Tylenol p.r.n., Kinde 5/325 p.o. q.4 hours p.r.n., Lomotil 1 table t p.o. b.i.d. p.r.n., heparin 5000 units subcutaneously b.i.d., Ativan as needed for EtOH withdrawal, mirtazapine 15 mg p.o. q.h.s., nicotine 7 mg patch daily, Zofran p.r.n., IV normal saline at 150 cc an hour, thiamine 100 mg p.o. daily. PHYSICAL EXAM: VITAL SIGNS: Her temperature is 36.7, her blood pressure is 99/60, her heart rate is 68. She is saturating 95% on 4 L of oxygen. GENERAL: She is chronically ill. No acute distress. Appears comfortable lying flat. HEENT: Mucous membranes are dry. No scleral icterus. NECK: Supp le. No JVD. LUNGS: Clear to auscultation bilaterally. CARDIOVASCULAR: Regular rate and rhythm. No rub. ABDOMEN: Soft, nontender. No tense ascites. EXTREMITIES: Warm. No edema. NEUROLOGIC: Alert and oriented x3. SKIN: No lice, rash. LABS: White blood cell count 3.6, hemoglobin 14.3, hematocrit 43.3, platelets 258. Her blood gas sh owed a pH of 7.48, pCO2 66, PO2 34, bicarbonate of 48. Sodium 139, potassium 3.2, chloride 85, bicar bonate 46, BUN 44, creatinine 2.6, glucose 100, calcium 7.2, magnesium 2.4. Her UA showed 1+ protein , 5-10 hyaline casts, 1-3 red cells, 0-1 white cells, negative leukocyte esterase, negative nitrates, negative blood, negative ketones. ASSESSMENT AND PLAN: The patient is a 62-year-old woman with a history of bulimia and chronic kidney disease with multiple admissions for dehydration and acute kidney injury, now presents with hypotens ion, acute kidney injury, severe metabolic alkalosis, chronic, hypokalemia. 1. Acute on chronic kidney disease. I suspect she has had multiple episodes of acute kidney injury, likely prerenal/acute tubular necrosis that has led her with some residual chronic kidney disease. Unfortunately, she has had multiple episodes. It appears that her creatinine in the [facility] system h as been most recently 2.1 on August 05 of this year. She was in the high 1's in October of 2014. He r urinalysis is negative for any blood. We will send it for a formal protein quantification. She do es appear very dry on exam and I agree with aggressive fluids. I did try to gently address the situa tion as her bulimia may be contributing to her multiple admissions in her chronic kidney disease, but she is adamant that this is not an issue for her. She does not have any other obvious explanation f or why she may have such profound dehydration episodes. I would recommend having Psychiatry see her if she is willing. In the meantime, I would follow her electrolytes very closely as she is at risk f or refeeding syndrome. I would continue IV normal saline, as you are. We will send urine studies. Will also check a kidney ultrasound. 2. Chronic metabolic alkalosis. Her bicarbonate was 55 on admission. Her blood gas is fairly well compensated with a pH of 7.48, suggesting this is a chronic etiology. This fits her history of suspe cted bulimia episodes. I would continue to hydrate her as this appears to be intravascularly depleti on and contraction alkalosis related. We will follow her labs closely. 3. Hypokalemia. Again, this is likely due to her underlying episodes of bulimia. We will send some urine studies to rule out urinary wasting. She does deny any diuretic use. We will try to order a diuretic screen, but timing may not be able to detect. Thank you very much for the consultation. I have discussed my recommendations with the hospitalist maya iglesias. We will continue to follow closely with you. Please do not hesitate to call with any questions . /[id number]/MODL
[2017-10-27] MEDS: IPRATROPIUM/ALBUTEROL 3 ML DEYVIAL IH SCH ×3 (10:23→21:37)
[2017-10-27] MEDS ORDERED: CALCIUM GLUCONATE 50 ML IV ONE (15:22)
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
[2017-10-27] MEDS ORDERED: NON-FORMULARY NEW DRUG (Mirtazapine [Mirtazapine] 15 MG) PO SCH (21:00)
[2017-10-27] MEDS: MIRTAZAPINE 15 MG TAB PO SCH (21:02)
[2017-10-28] MEDS: HYDROCODONE/APAP 5/325 TAB PO PRN ×3 (05:16→21:58)
[2017-10-28] MEDS ORDERED: CALCIUM GLUCONATE 50 ML IV ONE (05:20)
[2017-10-28] MEDS ORDERED: POTASSIUM CL 10 MEQ TAB PO ONE ×2 (05:20→22:24)
[2017-10-28] MEDS: IPRATROPIUM/ALBUTEROL 3 ML DEYVIAL IH SCH ×4 (05:54→21:15)
[2017-10-28] MEDS: NICOTINE 7 MG/24 HR PATCH TD SCH (09:42)
[2017-10-28] MEDS: HEPARIN 5,000 UNIT/0.5 ML SYR SC SCH ×2 (09:43→22:19)
--- NOTE | 2017-10-28 10:06 | HOSPPROG ---
Hospitalist Progress Note Assessment/Plan: 62-year-old admitted with lightheadedness hypotension electrolyte abnormalities. She has a history of bulimia and anorexia however denies any symptoms of this currently. # metabolic alkalosis, severe chronic. This is most consistent with diuretic use however the patient adamantly denies this. I do not have another good explanation to explain her electrolyte abnormalities and appreciate renal consult * Continue to hydrate * Monitor all electrolytes and replace as needed * Will need additional midnight stay for the above evaluation * Consider repeating ABG tomorrow # acute on chronic kidney disease with elevated creatinine. Appreciate renal consult and discussed with Nephrology * Continue hydration and follow up labs * Patient is willing to follow up with Nephrology as an outpatient # hypoxemic respiratory failure. Unclear etiology although she does have a long history of tobacco use * Check chest x-ray PA and lateral shows some pulmonary edema and effusions, will follow oxygen needs for now. likely from poor nutrition and albumin, will avoid diuretics at this time. * Continue nicotine patch * At duo nebs and follow respiratory status and oxygen needs * ddimer negative # history of diarrhea she does admit to taking Lomotil for diarrhea but will not quantify how much diarrhea she is having. She also admits taking stool softeners intermittently as well # bulimia and anorexia, I discussed with patient possibility of seeing a psychiatrist this admission and she is willing to do that. At this point however she is not admitting to any diuretic use, laxative use, vomiting or bingeing. She is at a loss as to why she keeps getting this dehydrated requiring multiple hospitalizations. * Psych consult * speech eval * UDS # tobacco use, long-term. She has minimal wheezing and slightly hypoxic. Will start duo nebs and increase nicotine patch * DVT prophylaxis: Will start subcu heparin Subjective: no specific complaints today except. complains of a mild cough Objective: Vital Signs Temp Pulse Resp BP Pulse Ox 36.7 C 71 16 121/76 H 95 10/28/17 07:20 10/28/17 07:20 10/28/17 07:20 10/28/17 07:20 10/28/17 07:20 Laboratory Results 10/28/17 04:10 10/27/17 10/28/17 10/29/17 05:59 05:59 05:59 Intake Total 4480 4024 Output Total 200 1650 Balance 4280 2374 - Physical Exam Constitutional: no apparent distress Eyes: PERRL, anicteric sclera Ears, Nose, Mouth, Throat: moist mucous membranes, hearing normal Cardiovascular: regular rate and rhythym, no murmur, rub, or gallop Respiratory: no respiratory distress, reduced air movement Gastrointestinal: normoactive bowel sounds, soft, non-tender abdomen Genitourinary: no bladder fullness Skin: normal color Musculoskeletal: full muscle strength Neurologic: No facial droop Psychiatric: interacting appropriately, not anxious ICD10 Worksheet Patient Problems: Problems Problem Status Onset KENDRICK (acute kidney injury) Acute KENDRICK (acute kidney injury) Acute
--- NOTE | 2017-10-28 15:51 | PDCONSULT ---
Probe Operator Note: PSYCHIATRY MD CONSULTATION Patient interviewed at length and case discussed with staff including RN, mental health case manager Sandrita, and hospitalist Dr. Clarice Brown. Complete consult to follow. DIAGNOSIS: Major Depressive Disorder, moderate Unspecified Feeding or Eating Disorder. Remote history of anorexia nervosa, also history of bulemia. Rule out Factitious Disorder Personality disorder, unspecified SUMMARY OF RECOMMENDATIONS: Not meeting criteria, nor any indication, for inpatient psychiatric hospitalization. Pt is not considered to be danger to self, others or gravely disabled. Denies any thoughts/plan/intent to harm self. Has had occasional passive SI but not currently. Admitted that-due to stressors at home and conflictual relationship with her daughter- "I think maybe unconsciously I let, or make, myself, get sick...", to have respite in the hospital. Does so by "I stop drinking water" (or notably decreases intake) and sometimes ingests more salt to speed the process. Usually "takes about 3 weeks" before gets sick enough to end up in hospital. Able to recognize this is unhealthy and detrimental coping strategy, and agrees to let staff communicate this with her PCP, also expresses interest in seeking therapy. Recommended add B12, TSH to labs. Head CT pending for today. Speech therapy consult for cognitive assessment Discussed medication options for depression with patient, including option to increase Remeron to 30mg qhs or continue at 15mg qhs and adding Prozac 10mg qAM. Pt opted for latter, stating she has been on this before (not sure of dose ) and found it very helpful. Will try to confirm dose through PCP office, thinks she was on this over a year ago for many years. Pt very interested in establishing with regular outpatient therapy, also willing to consider IOP (intensive outpatient therapy) which is avail at [facility], or also at [facility] (pt prefers latter since closer to home). Also will need outpatient psychiatrist to manage and follow-up medications. In the meantime, states her PCP has been prescribing psychiatric meds and would likely continue to do so, and PCP has known her x 30yrs. Educated on effects of EtOH on sleep and depression. Patient states she has discussed cutting back on her one large nightly champagne glass, and has already been advised this by her PCP. C/o transportation limitations; states she was not aware of transport avail through medicare/-aid. Has PCP appt tomorrow 3:45p at [facility].
[2017-10-28] MEDS ORDERED: MAGNESIUM HYDROXIDE 30 ML UDCUP PO PRN (15:52)
[2017-10-28] MEDS ORDERED: LACTULOSE 20 GM/30 ML UDCUP PO PRN (15:52)
[2017-10-28] MEDS ORDERED: BISACODYL 10 MG SUPP PR PRN (15:52)
[2017-10-28] MEDS ORDERED: POLYETHYLENE GLYCOL 3350 17 GM PKT PO PRN (15:52)
--- NOTE | 2017-10-28 17:16 | ASMTCMCOM ---
CM Note CM Note Notes: 10/28/[address] Levi assessed pt today. Please see her consult note for details. At Dr. Levi request arranged appointment with Lacy Manzo, therapist, at [facility] on October 30 at 2:05 pm at the [place] location. Provided Dr. Levi phone number for [employer] Staff to contact with questions. Provided phone number for [facility] Intake Assessment. Provided phone numbers for transportation options including [place] [employer]. All of the above is entered in discharge paperwork. Case Management d/c poc: home independent with follow up as directed. Case Management to follow. Date Signed: 10/28/2017 04:35 PM Electronically Signed By:Sandrita Smith RN
--- NOTE | 2017-10-28 17:55 | SOAPPROG ---
SOAP Progress Note Assessment/Plan: Assessment/Plan: 62 y/o F with KENDRICK and metabolic alkalosis possible 2/2 to anorexia/bulimic disorder. KENDRICK on CKD -baseline Cr unknown, however multiple KENDRICK's in the past -Cr down to 1.5mg/dL with fluids -continue NS at 150ml/hr for now -avoid hypotension, NSAIDs, and contrast -renal US ordered, states she had one at [facility] 3 weeks ago Metabolic alkalosis -severe, chronic and appears to be chloride responsive -chloride borderline low and most likely associated with bulimia, diuretic screen pending -continue to monitor and replete potassium as this can also drive it Hypokalemia -continue to replete as above, also repleting Mg++ for goal >2 -encourage po intake -may need to dose down lactulose (currently written tid) -psych consult appreciated Tobacco use -cessation discussed Will continue to follow, please contact if ?'s #[phone]. 10/28/17 18:31 Subjective: Patient states she is feeling better and asking to order food. Up walking around. Denies vomiting or several loose stools. Objective: Vital Signs Temp Pulse Resp BP Pulse Ox 36.8 C 77 10 L 125/78 H 92 10/28/17 15:30 10/28/17 15:30 10/28/17 15:30 10/28/17 15:30 10/28/17 15:30 Laboratory Results 10/28/17 04:10 10/27/17 10/28/17 10/29/17 05:59 05:59 05:59 Intake Total 4480 4024 500 Output Total 200 1650 Balance 4280 2374 500 Physical Exam - Physical Exam General Appearance: WD/WN, alert, mild distress, thin EENT: PERRL/EOMI Neck: non-tender, full range of motion, supple Respiratory: lungs clear, normal breath sounds Cardiac/Chest: normal peripheral pulses, regular rate, rhythm Abdomen: normal bowel sounds, non-tender, soft Skin: normal color, warm/dry Extremities: normal range of motion, non-tender Neuro/Psych: no motor/sensory deficits, alert, depressed affect ICD10 Worksheet Patient Problems: Problems Problem Status Onset KENDRICK (acute kidney injury) Acute KENDRICK (acute kidney injury) Acute
[2017-10-28] MEDS: MIRTAZAPINE 15 MG TAB PO SCH (21:55)
[2017-10-28] MEDS: SENNOSIDES/DOCUSATE SODIUM TAB PO SCH (22:19)
[2017-10-29] MEDS: NS 1,000 ML IV SCH (00:13)
[2017-10-29] MEDS: IPRATROPIUM/ALBUTEROL 3 ML DEYVIAL IH SCH ×2 (05:45→12:10)
[2017-10-29] MEDS: HYDROCODONE/APAP 5/325 TAB PO PRN (06:33)
[2017-10-29] MEDS ORDERED: POTASSIUM CL 10 MEQ TAB PO ONE (07:20)
[2017-10-29] MEDS: NICOTINE 7 MG/24 HR PATCH TD SCH (07:50)
[2017-10-29] MEDS: HEPARIN 5,000 UNIT/0.5 ML SYR SC SCH (07:50)
[2017-10-29] MEDS: SENNOSIDES/DOCUSATE SODIUM TAB PO SCH (07:53)
[2017-10-29] MEDS ORDERED: CALCIUM GLUCONATE 50 ML IV ONE (08:39)
[2017-10-29] MEDS ORDERED: MAGNESIUM SULF 1 GM/DEXTROSE 100 ML IV ONE (08:39)
[2017-10-29 11:11] VITALS: BP 130/87
[2017-10-29] MEDS ORDERED: FLUoxetine 10 MG CAP PO SCH (11:45)
[2017-10-29] MEDS ORDERED: THIAMINE HCL 100 MG TAB PO SCH ×2 (17:17→18:24)
--- NOTE | 2017-10-29 19:42 | PDDCSUM ---
Discharge Summary Discharge Summary: DISCHARGE SUMMARY FOLLOW-UP ITEMS: 1. Repeat creatinine BUN and lytes as outpatient regularly to monitor for any signs of recurrent KENDRICK, alkalosis, hypokalemia 2. Ensure patient follows up with her outpatient therapist and monitor affect of Prozac 3. Continued offer intensive outpatient therapy DATE OF ADMISSION: 10/26/2017 DATE OF DISCHARGE: 10/29/2017 DISCHARGE DIAGNOSES: 1. Acute kidney injury 2. Acute metabolic alkalosis 3. Acute severe hypokalemia 4. Factitious disorder with moderate major depressive disorder, possible eating disorder 5. Acute hypoxic respiratory failure 6. Acute pleural effusion CONSULTATIONS: Nephrology, Psychiatry PROCEDURES / IMAGING: Renal ultrasound demonstrating no abnormalities of the kidney, chest x-ray demonstrating small pleural effusion, head CT demonstrating no abnormalities CHIEF COMPLAINT: Acute weakness, lightheadedness SUBJECTIVE: Patient is feeling well at time discharge, she is completely asymptomatic PHYSICAL EXAM ON DISCHARGE: Systolic blood pressure is 120, heart rate 80, afebrile overnight, satting well on room air, alert awake oriented x3, chronically ill-appearing woman, no apparent distress LABS ON DISCHARGE: TSH normal, creatinine 1.2, BUN 21, bicarbonate 39, potassium 3.8, magnesium 2.3 , corrected calcium 9.2, liver panel unremarkable, B12 620 HOSPITAL COURSE BY PROBLEM: 1. Acute kidney injury. The patient presented with acute kidney injury secondary to hypovolemia secondary to poor oral intake which was intentional on the part of the patient and will be discussed further below. She received IV fluids, nephrology consultation, and her creatinine level improved 1.2 at time of discharge. Is unclear whether the patient has any element of chronic kidney disease, but it is certainly possible given that she has experienced acute kidney injury on numerous occasions secondary to voluntary reductions in oral intake with tension of becoming ill. Consequently, we do recommend that the patient's outpatient providers regularly monitor her renal function as well as her electrolytes, to determine whether she is potentially, recurrently, reducing her oral intake and is at risk of becoming ill again. At the present time, she does not have any indication to follow up with the english lecturer, unless her creatinine level continues to be elevated as an outpatient, which time she could be referred to [facility] for ongoing chronic kidney disease stage 3 management. 2. Severe metabolic alkalosis. Acute on chronic, secondary to contraction alkalosis in the setting of poor oral intake and hypovolemia. Is also possible the patient may be surreptitiously taking a diuretic at home, with the intention of making herself ill. Her condition was treated with IV fluid hydration, which improved her serum bicarbonate level to 39 at time of discharge. As above, we would recommend ongoing serum chemistry monitoring, and outpatient referral to [facility] if further concerns arise. 3. Acute hypokalemia. Severe, most likely secondary to poor oral intake as outlined above,, status post aggressive repletion with IV magnesium comma level stabilized at time of discharge. Recommend continued outpatient monitoring of these electrolytes. 4. Factitious disorder with moderate major depressive disorder, possible eating disorder. The patient was seen in consultation by psychiatrist Dr. Milena Levi , and she was able to obtain from the patient that the patient frequently intentionally denies herself oral intake of solids and liquids with the intention of becoming ill and being able to receive emotional respite within the healthcare setting as a method of coping with her life stressors. This is clearly a self inflicted and dangerous behavior which the patient has been able to emotionally and psychologically reconcile inappropriately as a rational method of coping with stress. Consequently, she is intentionally performing the behavior in order to achieve secondary gain, namely respite from her stressful life, but the fact that she would engage in such a self harming behavior indicates that there is a mental health disorder concomitantly enabling her in order to choose this a deleterious method of coping. The patient has good insight into the cause and effect of her actions which is even potentially more disturbing, as the patient understands the potential threat to self and continues to engage in the behavior. That said, the patient has been very clear with Dr. Levi that at the present time she does not intend to harm self, does not intend to re-engage in this behavior upon discharge, and she currently does not meet any indication for inpatient Behavioral Health stabilization. That being said, Dr. Levi and I have spoken about this situation at length prior to discharge, and we believe that it is reasonable to provide initial intervention for the patient with re-initiation of Prozac 10 mg in addition to ongoing use of her home dosage of Remeron 15 mg, arrange intensive outpatient therapy, with a scheduled therapy appointment for this patient arranged prior to discharge. The patient understands the importance of making this appointment as well as initiating Prozac and monitoring its effect. The patient also understands that she will need to reconcile some of the differences she has with her daughter, who is a primary stressor in the patient' s life. The patient has full intention of doing so and she has voiced this prior to discharge. That being said, if the patient is unable to successfully engage in this multi pronged intervention, and she re-engage is in self- destructive behavior leading to recurrent hospitalization for medical reasons as outlined above, then strong consideration will be given to the patient being admitted to an inpatient Behavioral Health Unit. 5. Acute hypoxic respiratory failure. Evidenced by SpO2 of 84% on room air, symptomatic shortness of breath, requiring up to 5 L nasal cannula high-flow oxygen, most likely secondary to a combination of metabolic alkalosis with respiratory compensation as well as acute pleural effusions as noted on chest x- ray. These effusions were most likely secondary to diuretics received for treatment of above, the patient's respiratory status has stabilized prior to discharge, not necessitating supplemental oxygen at discharge. DISCHARGE MEDICATIONS: Please see official discharge medication reconciliation sheet in chart , continue home medications with the addition of Prozac 10 mg daily. Avoid over- the-counter diuretics and salt tabs. DISCHARGE INSTRUCTIONS: Please follow up at [facility] on the day of discharge as scheduled, as well as with her therapist as scheduled prior to discharge. TIME SPENT: Greater than 30 minutes were spent on direct patient care, as well as discharge planning and preparation.
== END 2017-10-29 15:15 | disposition home or self-care (01) | DRG 682 ==
LOC: CED 11:17 → CEDHOLD 13:18 → F2W 15:00
PROVIDERS: ADMIT Student in an Organized Health Care Education/Training Program; ATTEND Internal Medicine
DX: N17.9 Acute kidney failure, unspecified (principal); J96.01 Acute respiratory failure with hypoxia; E87.3 Alkalosis; J90 Pleural effusion, not elsewhere classified; I12.9 Hypertensive chronic kidney disease with stage 1 through stage 4 chronic kidney disease, or unspecified chronic kidney disease; N18.9 Chronic kidney disease, unspecified; E87.6 Hypokalemia; E86.1 Hypovolemia; F68.10 Factitious disorder imposed on self, unspecified; F32.9 Major depressive disorder, single episode, unspecified; F50.9 Eating disorder, unspecified; F17.210 Nicotine dependence, cigarettes, uncomplicated
CPT/HCPCS: 80048-PO; 80307; 81003-PO; 81015-PO; 82607-90; 85025-PO; 92523-GN; G0480; G9165-GN-CI; G9166-GN-CI; G9167-GN-CI; J0610; J1644; J3475

== ENCOUNTER 2018-03-01 19:17 | Inpatient (IN) | payer OTHER, MEDICAID ==
[2018-03-01] MEDS ORDERED: NS 1,000 ML IV ONE ×2 (19:35→22:30)
[2018-03-01] MEDS ORDERED: ONDANSETRON 4 MG/2 ML VIAL IVP ONE (20:30)
[2018-03-01] MEDS ORDERED: POTASSIUM CL 20 MEQ/15 ML UDCUP PO ONE (20:34)
[2018-03-01] MEDS ORDERED: HYOSCYAMINE SULFATE 0.125 MG TAB PO ONE (20:35)
--- NOTE | 2018-03-01 20:43 | EDPHY ---
H & P Stated Complaint: general malaise, bilat low back pain, nausea/diarrhea since 11am. Time Seen by Provider: 03/01/18 19:35 HPI/ROS: This patient presents with diarrhea, nausea, anorexia and generalized fatigue that feels similar to her to her episode of renal failure recently. She has a history of bulimia but denies any self-induced emesis recently. She does have nausea and 3 days of diarrhea several episodes a day watery in nature. She took diphenoxylate today and has had no diarrhea since then. She also complains of abdominal pain that started today that is crampy in nature moderate to severe intensity , waxing waning in the mid abdomen and radiating to her back. She describes the back pain is sharp in nature and severe intensity to the mid back. ROS constitutional: No fevers. HEENT: No nasal congestion or other HEENT complaints pulmonary: She started coughing last night a dry intermittent cough has had some coughs since then. Cardiovascular: No heart palpitations. She denies any chest pain. GI: No dark tarry stools or bloody stools. Abdominal pain as mentioned in HP I. : No dysuria. No hematuria. No frequency urgency. Endocrine: No complaints Integumentary: No complaints Psychiatric: Again she denies bulimia but has had poor appetite due to her nausea 10 point review of symptoms is performed and otherwise negative with exception of pertinent positives and negatives listed in HPI and ROS Source: Patient Exam Limitations: No limitations - Personal History Current Tetanus Diphtheria and Acellular Pertussis (TDAP): Unsure Tetanus Vaccine Date: UNSURE - Medical/Surgical History Hx Asthma: No Hx Chronic Respiratory Disease: No Hx Diabetes: No Hx Cardiac Disease: Yes Hx Renal Disease: Yes Hx Cirrhosis: No Hx Alcoholism: No Hx HIV/AIDS: No Hx Splenectomy or Spleen Trauma: No Other PMH: kidney failure 2013,anxiety and HTN. surg-ankle,tubal and oral surgery, chr back bibi, depression - Social History Smoking Status: Current every day smoker Alcohol Use: Other (She reports 1 glass of wine daily at dinner) Drug Use: None - Physical Exam Exam: General Appearance: Alert, no distress. Eyes: Pupils equal and round no pallor or injection. ENT, Mouth: Mucous membranes dry. Respiratory: There are no retractions, lungs are clear to auscultation. Cardiovascular: Regular rate and rhythm. No murmur gallop or rub Gastrointestinal: Normoactive, soft, mild left lower quadrant tenderness with no guarding or rebound. Neurological: GCS 15. No focal deficits. Skin: Warm and dry, no rashes. Musculoskeletal: Neck is supple nontender. Extremities are symmetrical, full range of motion. Psychiatric: Mood and affect are normal DIFFERENTIAL DIAGNOSIS: After history and physical exam differential diagnosis was considered for viral gastroenteritis, dehydration, prerenal azotemia/renal failure, metabolic disarray, pneumonia, bronchitis, pancreatitis, diverticulitis Constitutional: Initial Vital Signs Temperature (C) 37.2 C 03/01/18 19:35 Heart Rate 91 03/01/18 19:35 Respiratory Rate 16 03/01/18 19:35 Blood Pressure 123/70 H 03/01/18 19:35 O2 Sat (%) 91 L 03/01/18 19:35 O2 Delivery Mode Room Air O2 (L/minute) 2 Allergies/Adverse Reactions: Sulfa (Sulfonamide Antibiotics) Allergy (Mild, Verified 03/01/18 19:34) Other-Enter Comments Home Medications: Medication Instructions Recorded Diphenoxylate HCl/Atrop Sulf 1 tab PO DAILY PRN 03/02/18 [Lomotil Tab (*)] FLUoxetine [Prozac 10 MG (*)] 20 mg PO DAILY 03/02/18 Hydrocodone/Acetaminophen [Traer 1 each PO Q4 PRN 03/02/18 5/325 (*)] Mirtazapine 15 mg PO HS 03/02/18 Propranolol HCl [Inderal 10mg (*)] 10 mg PO DAILY PRN 03/02/18 hydrOXYzine HCL [hydrOXYzine HCL 25 mg PO BID 03/02/18 (RX)] Medical Decision Making - Diagnostics EKG Interpretation: 12 lead EKG performed at 8:53 p.m. Indication nausea generalized weakness rule out myocardial ischemic disease Sinus rhythm 82 Intervals: Normal throughout the exception of prolonged QTC at 5:31 a.m. [place]: Normal throughout Overall assessment sinus rhythm with prolonged QT Imaging Results: Two view chest x-ray: No significant at abnormalities by my interpretation Imaging: I viewed and interpreted images myself ED Course/Re-evaluation: IV normal saline -1 L Zofran 4 mg IV with relief of nausea Levsin sublingual with partial relief abdominal pain Potassium p.o. I spoke with Dr. Morrison-hospitalist at [facility] who accepts this patient for transfer to [facility] for acute renal failure & dehydration - Data Points Medications Given: Hydrocodone Bitart/Acetaminophen (Traer 5/325) 1 tab PO Q6HRS PRN PRN Reason: Pain, Moderate Able to Take PO Stop: 03/12/18 01:21 Last Admin: 03/04/18 13:11 Dose: 1 tab Fluoxetine HCl (Prozac) 20 mg PO DAILY CRYSTAL Stop: 08/30/18 08:59 Last Admin: 03/04/18 10:29 Dose: 20 mg Heparin Sodium (Porcine) (Heparin Sc Injection) 5,000 unit SC Q8HRS CRYSTAL Stop: 08/29/18 05:59 Last Admin: 03/04/18 15:05 Dose: Not Given Sodium Chloride (Ns) 1,000 mls @ 125 mls/hr IV CONT CRYSTAL Stop: 08/29/18 11:29 Last Admin: 03/03/18 16:03 Dose: 1,000 mls Mirtazapine (Remeron) 15 mg PO HS CRYSTAL Stop: 08/29/18 20:59 Last Admin: 03/03/18 20:49 Dose: 15 mg Nicotine (Nicoderm Cq) 7 mg TD DAILY CRYSTAL Stop: 08/29/18 01:29 Last Admin: 03/04/18 10:28 Dose: 7 mg Ondansetron HCl (Zofran) 4 mg IVP Q4HRS PRN PRN Reason: Nausea/Vomiting, Use 1st Stop: 08/28/18 22:36 Last Admin: 03/04/18 06:22 Dose: 4 mg Senna/Docusate Sodium (Senokot-S) 1 - 2 tab PO BID CRYSTAL PRN Reason: Protocol Stop: 08/29/18 08:59 Last Admin: 03/04/18 10:29 Dose: 1 tab Discontinued Medications Hydrocodone Bitart/Acetaminophen (Traer 5/325) 1 tab PO ONCE ONE Stop: 03/01/18 23:09 Last Admin: 03/01/18 23:17 Dose: 1 tab Hyoscyamine Sulfate (Levsin, Hyomax-Sl) 0.125 mg PO EDNOW ONE Stop: 03/01/18 20:36 Last Admin: 03/01/18 20:42 Dose: 0.125 mg Sodium Chloride (Ns) 1,000 mls @ 0 mls/hr IV EDNOW ONE; Wide Open PRN Reason: Protocol Stop: 03/01/18 19:36 Last Admin: 03/01/18 20:13 Dose: 1,000 mls Potassium Chloride/Sodium Chloride (Ns W/ 20 Kcl/L) 1,000 mls @ 125 mls/hr IV CONT CRYSTAL Stop: 08/28/18 22:44 Last Admin: 03/02/18 01:18 Dose: 1,000 mls Sodium Chloride (Ns) 1,000 mls @ 0 mls/hr IV EDNOW ONE; Wide Open PRN Reason: Protocol Stop: 03/01/18 22:31 Last Admin: 03/01/18 23:27 Dose: 1,000 mls Sodium Chloride (Ns) 1,000 mls @ 1,000 mls/hr IV ONCE ONE Stop: 03/02/18 06:23 Last Admin: 03/02/18 05:34 Dose: 1,000 mls Magnesium Sulfate/Dextrose (Magnesium Sulf 1 Gm (Premix)) 100 mls @ 100 mls/hr IV ONCE ONE Stop: 03/02/18 10:29 Last Admin: 03/02/18 09:51 Dose: 100 mls Magnesium Sulfate/Dextrose (Magnesium Sulf 1 Gm (Premix)) 100 mls @ 100 mls/hr IV ONCE ONE Stop: 03/03/18 08:32 Last Admin: 03/03/18 08:07 Dose: 100 mls Magnesium Sulfate/Dextrose (Magnesium Sulf 1 Gm (Premix)) 100 mls @ 100 mls/hr IV ONCE ONE Stop: 03/04/18 12:36 Last Admin: 03/04/18 12:03 Dose: 100 mls Influenza Virus Vaccine Quadrival (Flulaval Quad [id number] (6mo+)) 0.5 ml IM .ONCE ONE Stop: 03/02/18 08:44 Last Admin: 03/02/18 09:13 Dose: 0.5 ml Mirtazapine (Remeron) 15 mg PO HS CRYSTAL Stop: 08/29/18 01:59 Last Admin: 03/02/18 02:15 Dose: 15 mg Ondansetron HCl (Zofran) 4 mg IVP EDNOW ONE Stop: 03/01/18 20:31 Last Admin: 03/01/18 20:38 Dose: 4 mg Pneumococcal Polyvalent Vaccine (Pneumovax 23) 0.5 ml IM .ONCE ONE Stop: 03/02/18 08:44 Last Admin: 03/02/18 09:15 Dose: 0.5 ml Potassium Chloride (Potassium Chloride Oral Liquid) 20 meq PO EDNOW ONE Stop: 03/01/18 20:35 Last Admin: 03/01/18 20:42 Dose: 20 meq Potassium Chloride (Potassium Chloride Oral Liquid) 40 meq PO ONCE ONE Stop: 03/02/18 05:27 Last Admin: 03/02/18 05:34 Dose: 40 meq Potassium Chloride (Klor-Con) 10 - 40 meq PO ONCE ONE PRN Reason: Protocol Stop: 03/02/18 09:30 Last Admin: 03/02/18 09:50 Dose: 40 meq Potassium Chloride (Klor-Con) 30 meq PO ONCE ONE PRN Reason: Protocol Stop: 03/02/18 19:30 Last Admin: 03/02/18 20:37 Dose: 30 meq Potassium Chloride (Klor-Con) 20 meq PO ONCE ONE PRN Reason: Protocol Stop: 03/03/18 07:34 Last Admin: 03/03/18 08:07 Dose: 20 meq Potassium Chloride (Klor-Con) 30 meq PO ONCE ONE PRN Reason: Protocol Stop: 03/03/18 21:20 Last Admin: 03/03/18 22:28 Dose: 30 meq Potassium Chloride (Klor-Con) 10 - 40 meq PO ONCE ONE PRN Reason: Protocol Stop: 03/04/18 10:50 Last Admin: 03/04/18 11:52 Dose: 30 meq Point of Care Test Results: CBC CBC Collection Date 03/01/18 CBC Collection Time 19:50 WBC 8 RBC 3.92 PLT 326 Neut # 5.4 Neut 67.7 LYMPH # 2 LYMPH 24.8 Other WBC # 0.6 Other WBC 7.5 Chemistry 03/01/18 03/01/18 03/01/18 20:16 20:12 19:59 POC Sodium 136 mEq/L mEq/L 144 mEq/L mEq/L (135-145) (135-145) POC Potassium 2.2 mEq/L L* mEq/L 2.5 mEq/L L* mEq/L (3.3-5.0) (3.3-5.0) POC Chloride TNP TNP POC Total CO2 38 mEq/L H mEq/L (22-31) POC BUN 33 mg/dL H mg/dL 32 mg/dL H mg/dL (7-23) (7-23) POC Creatinine 3.6 mg/dL H mg/dL 3.9 mg/dL H mg/dL (0.6-1.0) (0.6-1.0) POC Glucose 98 mg/dL mg/dL 100 mg/dL mg/dL (70-100) (70-100) POC Calcium 9.3 mg/dL mg/dL (8.5-10.4) POC Total Bilirubin 0.7 mg/dL mg/dL (0.1-1.4) POC GGT 34 IU/L IU/L (5-65) POC AST 35 IU/L IU/L (14-46) POC ALT 25 IU/L IU/L (9-52) POC Alk Phosphatase 75 IU/L IU/L (38-126) POC Total Protein 7.1 g/dL g/dL (6.3-8.2) POC Albumin 4.0 g/dL g/dL (3.5-5.0) POC Amylase 87 IU/L IU/L (30-110) ISTAT H&H 03/01/18 20:16 POC Hgb 12.9 gm/dL gm/dL (12.6-16.3) POC Hct 38 % % (38-47) Liver Function Tests LFT Collection Date 03/01/18 LFT Collection Time 19:50 Urine Dip Collection Date 03/01/18 Collection Time 21:00 Specific [place] (1.002-1.030) 1.015 PH (5.0-7.5) 8.5 Leukocytes (Negative) Trace Nitrites (Negative) Negative Protein (Negative) 1+ Glucose (Negative) Negative Ketones (Negative) Negative Urobilnogen (0.2-1.0 EU) 0.2 Bilirubin (Negative) Negative Blood (Negative) Negative Departure - Departure Disposition: [facility] Acute Clinical Impression: Dehydration, Hypokalemia Diarrhea Qualifiers: Diarrhea type: unspecified type Qualified Code(s): R19.7 - Diarrhea, unspecified Acute renal failure Qualifiers: Acute renal failure type: unspecified Qualified Code(s): N17.9 - Acute kidney failure, unspecified Condition: Fair
[2018-03-01] MEDS ORDERED: ACETAMINOPHEN 325 MG TAB PO PRN (22:37)
[2018-03-01] MEDS ORDERED: LORazepam 0.5 MG TAB PO PRN (22:37)
[2018-03-01] MEDS ORDERED: NS W/ 20 KCl/L 1,000 ML IV SCH (22:45)
[2018-03-01] MEDS ORDERED: HYDROCODONE/APAP 5/325 TAB PO ONE (23:08)
[2018-03-01] MEDS ORDERED: HYDROCODONE/APAP 5/325 TAB ONE (23:15)
--- NOTE | 2018-03-01 23:21 | CPEKG ---
Test Reason : OPEN Blood Pressure : / mmHG Vent. Rate : 082 BPM Atrial Rate : 082 BPM P-R Int : 178 ms QRS Dur : 091 ms QT Int : 454 ms P-R-T Axes : 074 029 061 degrees QTc Int : 531 ms Sinus rhythm Prolonged QT interval Confirmed by Sachin Young ([id number]) on 03/01/2018 11:20:46 PM Referred By: Confirmed By:Sachin Young
[2018-03-02] MEDS ORDERED: MAGNESIUM HYDROXIDE 30 ML UDCUP PO PRN (01:23)
[2018-03-02] MEDS ORDERED: LACTULOSE 20 GM/30 ML UDCUP PO PRN (01:23)
[2018-03-02] MEDS ORDERED: BISACODYL 10 MG SUPP PR PRN (01:23)
[2018-03-02] MEDS ORDERED: POLYETHYLENE GLYCOL 3350 17 GM PKT PO PRN (01:23)
[2018-03-02] MEDS: NICOTINE 7 MG/24 HR PATCH TD SCH ×2 (01:47→08:31)
[2018-03-02] MEDS ORDERED: MIRTAZAPINE 15 MG TAB PO SCH (02:00)
--- NOTE | 2018-03-02 02:29 | GHP ---
DATE OF ADMISSION: 03/01/2018 SOURCE: Patient provides history, appears reliable. EMR was reviewed and case discussed with accepting hospitalist. CHIEF COMPLAINT: Nausea, vomiting, diarrhea, generalized malaise, and generalized weakness. HISTORY OF PRESENT ILLNESS: This is a pleasant 62-year-old female with a past medical history significant for chronic kidney disease stage 2, baseline creatinine 1.2 to 1.9, anxiety, depression, HTN, history of bulimia, chronic back pain on chronic narcotic therapy, and chronic constipation who presents to the emergency department at [facility] today with complaints of 3 days of diarrhea. The patient reports that she had nausea, vomiting, and diarrhea that lasted for approximately 3 days. She did take a dose of Lomotil earlier today with resolution of her symptoms, which was reported to the ED provider. I clarified the patient when her last bowel movement was; however, she says that it was a week ago. She does report that she has had a sick contact, her grandson, who has had similar symptoms over the past week. She did reports she developed some mid abdominal pain that is crampy in nature, sharp, radiating to her back. Additionally, patient reports that 3 days ago she noted some blood-tinged emesis. She also reports that she had a moderate amount of bright red blood per rectum when she wiped, but nothing in her stool or in the toilet and this lasted just for 1 day. Patient reports that before today prior to the nausea and vomiting she had been able to take in oral hydration. She had not been skipping any meals. She does have a history of bulimia, was previously admitted and 02/15/2018 with acute on chronic renal insufficiency felt secondary to severe dehydration in midst of exacerbation of her bulimia. The patient reports that she has been tolerating diet and eating daily. She denies any fevers, but has been experiencing some subjective chills. REVIEW OF SYSTEMS: GENERAL: Positive for chills. No fevers. SKIN: Patient does report a few chronic sores, one on the left proximal leg that is slow to heal after injury for approximately 1 month. The patient also notes that she does have a lot of sun exposure and previously used to go and nair in addition to that, and so her skin is naturally bronze color. ENT: No sore throat rhinorrhea. EYES: No acute changes in vision or ocular pain. CV: The patient denies any chest pain, palpitations, or lower extremity edema. She does report that this morning she did develop some neck pain after taking sips of her vitamin water. This has occurred smokes daily approximately 2 cigarettes per day. She does not use any illicit drugs or marijuana. She does have occasional glass of wine with dinner, but nothing on a daily basis. Remainder 10 -point ROS negative except as noted above. CODE STATUS: Full. PHYSICAL EXAMINATION: VITAL SIGNS: Upon arrival to [facility], blood pressure 123/70, heart rate was 91, respiratory rate 16, O2 saturation 91 % on room air with temperature of 37.2. Current vital signs available, blood pressure 103/67, heart rate 76, respiratory rate 16, O2 saturation 98% on 2 L by nasal cannula, temperature 37.1. GENERAL: No acute distress, pleasant thin adult female is sitting up in bed. She is alert and interactive, pleasant and cooperative. HEAD: Normocephalic, atraumatic. EYES: Extraocular muscles are intact. Pupils equal, round, and reactive to light bilaterally and symmetric. No scleral icterus or conjunctival injection. ENT: Mucous membranes appear dry. No oropharyngeal erythema. The patient is edentulous. She has denture in place. NECK: Supple. Trachea midline. CV: Regular rate and rhythm. No murmurs, rubs, or gallops appreciated. RESPIRATORY: Lungs are clear to auscultation bilaterally. No wheezes or rhonchi. Occasional crackles in the left base. Unlabored breathing. GI: Abdomen soft, nontender to palpation. No rebound or guarding. Positive bowel sounds. Nondistended. : No suprapubic tenderness to palpation. No Burger catheter in place. MUSCULOSKELETAL: Patient moves all extremities. She is able to sit up independently. Generalized weakness. NEUROLOGICAL: Grossly nonfocal. No facial drooping. Moves all extremities. PSYCHIATRIC: Thought process, content , and questions are appropriate. She is pleasant and cooperative at this time. LABORATORY STUDIES: H and H 12.9 and 30.0. Sodium initially is 144, potassium 2.5, CO2 38, BUN 32, creatinine 3.9, glucose 100, calcium is 9.3, lipase 191, total bilirubin 0.7, total protein 7.1, albumin is 4.0, ALT is 25, AST is 35, alkaline phosphatase is 75. Repeated BMP before patient arrived, sodium was 136 , potassium 2.2, creatinine 33, BUN 3.6, glucose 98. UA limited. Assessment showing WBCs 1-3, epithelial trace, hyaline casts 5-15, urine RBC 1-3. Patient' s creatinine at discharge on 02/18/2018 was 1.9. Chest x-ray image report reviewed. Normal. EKG reviewed myself showing sinus rhythm in the 80s. No acute ST changes. QTc is 531. ASSESSMENT AND PLAN: Pleasant 62-year-old female with a history of CKD stage 2 , anxiety, depression, bulimia, who presents with complaints of malaise, nausea , vomiting, and diarrhea. 1. Hypokalemia, likely related to patient's gastrointestinal losses. She reports that she has not had any exacerbation of her bulimia and has been eating regular meals since her discharge on February 18. The patient received 20 mEq in the ED prior to arrival. Her repeat potassium did downtrend slightly, but I am not sure if this was drawn from her IV site or peripherally. We will plan to repeat a potassium. IV fluids for her dehydration will include potassium supplementation. We will plan to monitor her electrolytes closely. 2. Acute on chronic kidney disease stage 2. Likely prerenal in nature in setting of gastrointestinal losses. We will plan to continue with IV fluids. Repeat BMP and consider additional evaluation, but appears the patient's repeated creatinine at [facility] before transfer did show some slight improvement in her renal function. 3. Nausea and vomiting, currently controlled. Zofran available p.r.n. We will need to monitor patient closely on cardiac telemetry given her QTc prolongation. 4. Constipation, likely related to opiates and dehydration. The patient reported initially some diarrhea episodes, but when I clarified with the patient when her last BM was, she stated it was a week ago, so history is just slightly inconsistent, but will monitor in's and out's closely. Bowel program will be available p.r.n. 5. Underlying chronic medical issues. 6. Benign essential hypertension. Blood pressures at this time controlled. Resume patient's propranolol when her medication reconciliation is available. 7. History of bulimia. Patient reports she is eating regular meals at this time. Will monitor intake closely. 8. Anxiety and depression. Mirtazapine at bedtime. 9. Chronic back pain. [place] p.r.n., supportive care. 10. Fluid, electrolyte, nutrition. Normal saline with potassium. Electrolyte replacement and monitoring as noted above. We will also check magnesium and phosphorus. The patient is not a good candidate for a scheduled electrolyte replacement secondary to her acute renal failure so it has not been ordered. 11. Diet as tolerated. 12. Prophylaxis. SCDs, Lovenox. 13. Core status is full. 14. Disposition. Patient admitted to inpatient status on the PCU floor for close cardiac monitoring in setting of severe electrolyte disturbances and/or acute renal insufficiency. Anticipate she will require several days of IV fluids and close monitoring of her electrolytes and kidney function. /[id number]/MODL MTDD
[2018-03-02 04:37] LABS: PLATELET COUNT 214 10^3/uL (150-400)
[2018-03-02] MEDS ORDERED: NS 1,000 ML IV ONE (05:24)
[2018-03-02] MEDS ORDERED: POTASSIUM CL 20 MEQ/15 ML UDCUP PO ONE (05:26)
[2018-03-02] MEDS ORDERED: POTASSIUM Cl (KCl) 100 ML IV SCH (05:30)
[2018-03-02] MEDS: HEPARIN 5,000 UNIT/0.5 ML INJ SC SCH ×3 (05:35→20:34)
[2018-03-02] MEDS: ONDANSETRON 4 MG/2 ML VIAL IVP PRN (05:42)
[2018-03-02] MEDS: SENNOSIDES/DOCUSATE SODIUM TAB PO SCH ×2 (08:32→20:37)
[2018-03-02] MEDS: HYDROCODONE/APAP 5/325 TAB PO PRN ×3 (08:34→22:34)
[2018-03-02] MEDS ORDERED: PNEUMOCOCCAL 0.5ML VACCINE VIAL IM ONE (08:43)
[2018-03-02] MEDS ORDERED: ENOXAPARIN 40 MG/0.4 ML SYR SC SCH (09:00)
[2018-03-02] MEDS ORDERED: PROTOCOL POTASSIUM 1 DOSE MISC PRN (09:24)
[2018-03-02] MEDS ORDERED: PROTOCOL MAGNESIUM 1 DOSE IV PRN (09:24)
[2018-03-02] MEDS ORDERED: POTASSIUM CL 10 MEQ TAB PO ONE ×2 (09:29→19:29)
[2018-03-02] MEDS ORDERED: MAGNESIUM SULF 1 GM/DEXTROSE 100 ML IV ONE (09:30)
--- NOTE | 2018-03-02 11:26 | PDMN ---
Medical Necessity Medical necessity: [facility] [id number] Electrolyte Disorder and M326 ARF: 62 yo w/ hypokalemia r/t n/v, acute on chronic kidney disease stage 2. Generalized weakness, SBPs 70s-90s, K 2.2, Ca 7.2, Creat 3.9, IVF and electrolyte replacement started. Disposition admit to status for close cardiac monitoring in setting of severe electrolyte disturbances and/or acute renal insufficiency. Anticipate she will require several days of IVF and close monitoring of her electrolytes and kidney function. Pt w/ hx bulimia, HTN.
[2018-03-02] MEDS ORDERED: PROPRANOLOL HCL 10 MG TAB PO PRN (11:38)
[2018-03-02] MEDS: NS 1,000 ML IV SCH (12:19)
--- NOTE | 2018-03-02 14:14 | HOSPPROG ---
Hospitalist Progress Note Assessment/Plan: 62 yo F with hx of bulimia and factitious disorder amditted with severe hypokalemia in setting of n/v/d and lavelle on ckd # lavelle on ckd: with apparently ckd due to recurrent bouts of n/v/dehydration and likely ATN, baseline creatinine variable but frequenly in the 2-3 range, continue IVF, will need to discuss further the bout that led to this hospitalization as next # recurrent n/v/d: with recent hospitalization for same at which time she was seen by psychiatry and admitted that she frequently will restrict what she eats as well as purge in order to make herself sick enough to get a break from her home life. She did not readily admit that on this admission but will work to discuss further and ask for psych nurse consult. Her GI sxs have resolved # hypokalemia: profound on admission, on electrolyte protocol, 2/2 abov # factitious disorder/bulimia: as per above, will ask for nurse saloni, was seen recently by psychiatry who made some medication recommendations but did not feel patient was suitable for M1 hold # anemia: likely 2/2 anemia of ckd, will monitor and if stable defere for op w/u # anxiety/depression: continue prozac, mirtazapine # IP status # patient new to my care, old records reviewed and summarized as above Subjective: no significant overnight events, patient notes n/v/diarrhea have resolved, she is able to eat normally Objective: Vital Signs Temp Pulse Resp BP Pulse Ox 36.4 C 85 15 109/98 H 98 03/02/18 11:30 03/02/18 11:30 03/02/18 11:30 03/02/18 11:30 03/02/18 11:30 Laboratory Results 03/02/18 03:38 03/02/18 03:38 03/01/18 03/02/18 03/03/18 05:59 05:59 05:59 Intake Total 4700 100 Output Total 300 300 Balance 4400 -200 awake alert nad anicteric op clear rrr no mrg ctab soft nt nd no cce warm dry well perfsused oriented appropriate ICD10 Worksheet Patient Problems: Problems Problem Status Onset LAVELLE (acute kidney injury) Acute LAVELLE (acute kidney injury) Acute Acute kidney injury superimposed on chronic kidney disease Acute Metabolic alkalosis Acute Diarrhea Acute Dehydration Acute Acute renal failure Acute Hypokalemia Acute
--- NOTE | 2018-03-02 19:44 | ASMTCMCOM ---
CM Note CM Note Notes: Met with patient to discuss dispo planning. Patient recently admitted to [facility] in early February. She lives at home with her daughter and grandchildren. Per patient, a referral was sent to [facility] to assist with services for grandchildren - I will follow-up with C this week to see if this occurred. Anticipate patient will d/c home without needs. She declines the need for HHC. CM available for changes/needs. Plan: Likely Independent Date Signed: 03/02/2018 07:43 PM Electronically Signed By:Pau Pires RN
[2018-03-02] MEDS: MIRTAZAPINE 15 MG TAB PO SCH (20:38)
[2018-03-03 04:11] LABS: PLATELET COUNT 174 10^3/uL (150-400)
[2018-03-03] MEDS: HYDROCODONE/APAP 5/325 TAB PO PRN ×3 (04:46→20:20)
[2018-03-03] MEDS: HEPARIN 5,000 UNIT/0.5 ML INJ SC SCH ×3 (04:47→20:49)
[2018-03-03] MEDS ORDERED: POTASSIUM CL 10 MEQ TAB PO ONE ×2 (07:33→21:19)
[2018-03-03] MEDS ORDERED: MAGNESIUM SULF 1 GM/DEXTROSE 100 ML IV ONE (07:33)
[2018-03-03] MEDS: NICOTINE 7 MG/24 HR PATCH TD SCH (08:07)
[2018-03-03] MEDS: FLUoxetine 20 MG CAP PO SCH (08:07)
[2018-03-03] MEDS: SENNOSIDES/DOCUSATE SODIUM TAB PO SCH ×2 (08:40→20:50)
--- NOTE | 2018-03-03 11:53 | HOSPPROG ---
Hospitalist Progress Note Assessment/Plan: 62 yo F with hx of bulimia and factitious disorder amditted with severe hypokalemia in setting of n/v/d and lavelle on ckd # lavelle on ckd: with apparently ckd due to recurrent bouts of n/v/dehydration and likely ATN, baseline creatinine variable but frequently in the 2-3 range, continue IVF, will need to discuss further the bout that led to this hospitalization as next, BH to be inovlved # recurrent n/v/d: with recent hospitalization for same at which time she was seen by psychiatry and admitted that she frequently will restrict what she eats as well as purge in order to make herself sick enough to get a break from her home life. She did not readily admit that on this admission but will work to discuss further and ask for psych nurse consult. Her GI sxs have resolved # hypokalemia: profound on admission, on electrolyte protocol, 2/2 above, sp repletion and resolved # factitious disorder/bulimia: as per above, will ask for nurse saloni, was seen recently by psychiatry who made some medication recommendations but did not feel patient was suitable for M1 hold, concerning for continue recurrent admissions and will attempt to establish OP psych f/u # protein calorie malnutrition: with BMI of 16 and significant weight loss over the last 5 months, due to above, will ask for dietary consult # anemia: likely 2/2 anemia of ckd, will monitor and if stable defere for op w/u # anxiety/depression: continue prozac, mirtazapine # IP status Subjective: no significant overnight events, patient states she is overall feeling better, has been eating and drinking Objective: Vital Signs Temp Pulse Resp BP Pulse Ox 36.6 C 73 16 115/66 96 03/03/18 07:17 03/03/18 07:17 03/03/18 07:17 03/03/18 07:17 03/03/18 08:03 Laboratory Results 03/03/18 03:50 03/03/18 03:50 03/02/18 03/03/18 03/04/18 05:59 05:59 05:59 Intake Total 4700 3271 Output Total 300 2050 250 Balance 4400 1221 -250 awake alert nad anicteric op clear rrr no mrg ctab soft nt nd no cce warm dry well perfsused oriented appropriate ICD10 Worksheet Patient Problems: Problems Problem Status Onset Acute renal failure Acute Dehydration Acute Diarrhea Acute Hypokalemia Acute LAVELLE (acute kidney injury) Acute LAVELLE (acute kidney injury) Acute Acute kidney injury superimposed on chronic kidney disease Acute Metabolic alkalosis Acute
[2018-03-03] MEDS: NS 1,000 ML IV SCH (16:03)
--- NOTE | 2018-03-03 17:27 | ASMTCMCOM ---
CM Note CM Note Notes: Spoke with pt's hospitalist and pt's RN. On previous admission pt admitted to self induced vomiting and making herself sick in order to get a respite from difficult home life with daughter and grandchildren, also known as factitious disorder. Order placed for Behavioral health RN to help pt with coping strategies. Pt given phone number for [facility] through bedside RN. Pt would also benefit from resources around potential alternative housing possibilities if home life is too difficult for her. Pt likely to d/c independently likely tomorrow. D/C Plan: home independently Date Signed: 03/03/2018 05:26 PM Electronically Signed By:Junie Clement
[2018-03-03] MEDS: MIRTAZAPINE 15 MG TAB PO SCH (20:49)
[2018-03-03] MEDS ORDERED: hydrOXYzine HCL 25 MG TAB PO SCH (21:00)
[2018-03-04 04:18] LABS: PLATELET COUNT 187 10^3/uL (150-400)
[2018-03-04] MEDS: HEPARIN 5,000 UNIT/0.5 ML INJ SC SCH ×2 (05:55→15:05)
[2018-03-04] MEDS: HYDROCODONE/APAP 5/325 TAB PO PRN ×2 (05:57→13:11)
[2018-03-04] MEDS: ONDANSETRON 4 MG/2 ML VIAL IVP PRN (06:22)
[2018-03-04] MEDS: NICOTINE 7 MG/24 HR PATCH TD SCH (10:28)
[2018-03-04] MEDS: SENNOSIDES/DOCUSATE SODIUM TAB PO SCH (10:29)
[2018-03-04] MEDS: FLUoxetine 20 MG CAP PO SCH (10:29)
[2018-03-04] MEDS ORDERED: POTASSIUM CL 10 MEQ TAB PO ONE (10:49)
[2018-03-04] MEDS ORDERED: MAGNESIUM SULF 1 GM/DEXTROSE 100 ML IV ONE (11:37)
[2018-03-04 11:50] VITALS: BP 120/75
[2018-03-04] MEDS ORDERED: MAGNESIUM SULF 1 GM/DEXTROSE 100 ML BAG IV ONE (11:54)
== END 2018-03-04 15:35 | disposition home or self-care (01) | DRG 683 ==
LOC: CED 19:17 → CEDHOLD 21:28 → F2W 23:55
PROVIDERS: ADMIT Internal Medicine; ATTEND Internal Medicine
DX: N17.9 Acute kidney failure, unspecified (principal); F68.10 Factitious disorder imposed on self, unspecified; F50.2 Bulimia nervosa; E46 Unspecified protein-calorie malnutrition; Z68.1 Body mass index [BMI] 19.9 or less, adult; E87.6 Hypokalemia; E86.0 Dehydration; I12.9 Hypertensive chronic kidney disease with stage 1 through stage 4 chronic kidney disease, or unspecified chronic kidney disease; N18.2 Chronic kidney disease, stage 2 (mild); D63.1 Anemia in chronic kidney disease; F41.8 Other specified anxiety disorders; G89.29 Other chronic pain; K59.09 Other constipation; Z23 Encounter for immunization
CPT/HCPCS: 71046-PO; 80048-PO; 80076-PO; 82150-PO; 82565-PO; 82947-PO; 84132-PO; 84295-PO; 84520-PO; 85014-PO; 96374; 97161-GP; G0008; G0009; G8978-GP-CI; G8979-GP-CI; G8980-GP-CI; J1644; J2405; J3475

== ENCOUNTER 2018-03-24 18:59 | Inpatient (IN) | payer OTHER, MEDICAID ==
[2018-03-24] MEDS ORDERED: NS 1,000 ML IV ONE (19:23)
[2018-03-24] MEDS: POTASSIUM Cl (KCl) 100 ML IV ONE ×2 (19:48→19:53)
--- NOTE | 2018-03-24 19:49 | EDPHY ---
H & P Time Seen by Provider: 03/24/18 19:01 HPI/ROS: CHIEF COMPLAINT: Back pain HISTORY OF PRESENT ILLNESS: Patient presents with complaints of headache, back pain, feeling weak and generally"lethargic". Patient well known to this emergency department with history of chronic renal insufficiency and multiple episodes of acute renal failure due to bulimia, alcoholism and depression. She states she was in the hospital in February and had follow-up visit with [facility] on the 13 of March. She states her creatinine was 1.5 at that time. Today she feels that"something is not right". Over the last few days generally getting more aches and pains consistent with when she has dehydration and electrolyte abnormalities. She denies nausea vomiting or diarrhea and says she is"eating fine". She has had normal urinary output. She denies fevers or chills. She denies any trauma. REVIEW OF SYSTEMS: Constitutional: No fever, no chills. Eyes: No discharge. ENT: No sore throat. Cardiovascular: No chest pain, no palpitations. Respiratory: No cough, no shortness of breath. Gastrointestinal: No abdominal pain, no vomiting. Genitourinary: No dysuria. Musculoskeletal: Chronic low back pain. Skin: No rashes. Neurological: No headache. General Appearance: Alert, no distress. Thin chronically ill-appearing. Eyes: Pupils equal and round no pallor or injection. ENT, Mouth: Mucous membranes moist. Respiratory: There are no retractions, lungs are clear to auscultation. Cardiovascular: Regular rate and rhythm. Gastrointestinal: Abdomen is soft and nontender, no masses, bowel sounds normal. Neurological: Awake and alert, no focal neurologic deficits. Skin: Warm and dry, no rashes. Musculoskeletal: Neck is supple nontender. Extremities are symmetrical, full range of motion, no edema. Mild tenderness to palpation low back, sacral region. Psychiatric: Patient is oriented X 3, there is no agitation. Medical/surgical history: Chronic renal disease, hypertension, depression, chronic back pain, surgeries include ankle, oral surgery, tubal ligation. Social history: Does smoke cigarettes, a daily drinker. Smoking Status: Current every day smoker Constitutional: Initial Vital Signs Temperature (C) 36.7 C 03/24/18 19:08 Heart Rate 95 03/24/18 19:08 Respiratory Rate 16 03/24/18 19:08 Blood Pressure 105/63 03/24/18 19:08 O2 Sat (%) 90 L 03/24/18 19:08 O2 Delivery Mode Room Air O2 (L/minute) 2 Allergies/Adverse Reactions: Sulfa (Sulfonamide Antibiotics) Allergy (Mild, Verified 03/24/18 19:07) Other-Enter Comments Home Medications: Medication Instructions Recorded Diphenoxylate HCl/Atrop Sulf 1 tab PO DAILY PRN 03/02/18 [Lomotil Tab (*)] FLUoxetine [Prozac 10 MG (*)] 20 mg PO DAILY 03/02/18 Hydrocodone/Acetaminophen [[place] 1 each PO Q4 PRN 03/02/18 5/325 (*)] Mirtazapine 15 mg PO HS 03/02/18 Propranolol HCl [Inderal 10mg (*)] 10 mg PO DAILY PRN 03/02/18 hydrOXYzine HCL [hydrOXYzine HCL 25 mg PO BID 03/02/18 (RX)] Medical Decision Making ED Course/Re-evaluation: 8:00 p.m. Electrolytes returned. Creatinine 5.4 which is higher than any recent result. Discussed with patient that she will need admission and she agrees. Discussed with Dr. Amirah Deal, hospitalist, who accepted patient in transfer. Differential Diagnosis: Differential diagnosis includes but is not limited to electrolyte abnormality, dehydration, acute renal failure, urinary tract infection, musculoskeletal back pain, eating disorder. After evaluation in the emergency department patient with significant electrolyte abnormalities including worsening acute on chronic renal failure with a creatinine today of 5.4. Patient otherwise without significant complaints, specifically no syncope, abdominal pain, nausea or vomiting. Vital signs stable although slight hypoxia likely related to smoking history. IV fluids initiated in the emergency department. Discussed with hospitalist at [facility] and patient will be transferred there for admission and further evaluation and treatment. - Data Points Laboratory Results: 03/24/18 19:34 POC Sodium 143 mEq/L mEq/L (135-145) POC Potassium 3.8 mEq/L mEq/L (3.3-5.0) POC Chloride TNP POC Total CO2 36 mEq/L H mEq/L (22-31) POC BUN 60 mg/dL H mg/dL (7-23) POC Creatinine 5.4 mg/dL H mg/dL (0.6-1.0) POC Glucose 114 mg/dL H mg/dL (70-100) POC Calcium 10.1 mg/dL mg/dL (8.5-10.4) POC Total Bilirubin 0.7 mg/dL mg/dL (0.1-1.4) POC AST 29 IU/L IU/L (14-46) POC ALT 19 IU/L IU/L (9-52) POC Alk Phosphatase 92 IU/L IU/L (38-126) POC Total Protein 8.1 g/dL g/dL (6.3-8.2) POC Albumin 4.0 g/dL g/dL (3.5-5.0) Medications Given: Discontinued Medications Sodium Chloride (Ns) 1,000 mls @ 0 mls/hr IV ONCE ONE; Wide Open PRN Reason: Protocol Stop: 03/24/18 19:24 Last Admin: 03/24/18 19:48 Dose: 1,000 mls Potassium Chloride (Potassium Cl 10 Meq (Premix)) 100 mls @ 100 mls/hr IV EDNOW ONE Stop: 03/24/18 20:32 Last Admin: 03/24/18 19:53 Dose: Not Given Point of Care Test Results: CBC CBC Collection Date 03/24/18 CBC Collection Time 19:30 WBC 5.4 RBC 4.28 HGB 14.3 HCT 42.2 PLT 280 Neut # 3.7 Neut 69.4 LYMPH # 1.2 LYMPH 21.9 MCV 98.6 Chemistry 03/24/18 19:34 POC Sodium 143 mEq/L mEq/L (135-145) POC Potassium 3.8 mEq/L mEq/L (3.3-5.0) POC Chloride TNP POC Total CO2 36 mEq/L H mEq/L (22-31) POC BUN 60 mg/dL H mg/dL (7-23) POC Creatinine 5.4 mg/dL H mg/dL (0.6-1.0) POC Glucose 114 mg/dL H mg/dL (70-100) POC Calcium 10.1 mg/dL mg/dL (8.5-10.4) POC Total Bilirubin 0.7 mg/dL mg/dL (0.1-1.4) POC AST 29 IU/L IU/L (14-46) POC ALT 19 IU/L IU/L (9-52) POC Alk Phosphatase 92 IU/L IU/L (38-126) POC Total Protein 8.1 g/dL g/dL (6.3-8.2) POC Albumin 4.0 g/dL g/dL (3.5-5.0) Departure - Departure
[2018-03-24] MEDS ORDERED: ACETAMINOPHEN 325 MG TAB PO PRN (20:35)
[2018-03-24] MEDS ORDERED: ONDANSETRON 4 MG/2 ML VIAL IVP PRN (20:35)
[2018-03-24] MEDS ORDERED: hydrOXYzine HCL 25 MG TAB PO PRN (23:27)
[2018-03-24] MEDS: HEPARIN 5,000 UNIT/0.5 ML INJ SC SCH (23:36)
--- NOTE | 2018-03-24 23:39 | PDGENHP ---
History and Physical - Chief Complaint Malaise and fatigue - History of Present Illness Source-patient provides history is a fair historian. EMR was reviewed and case discussed with accepting hospitalist before patient arrived from [facility] [place] [place] HPI - pleasant 62-year-old female with past medical history significant for chronic kidney disease baseline creatinine 1.5-2.0 with multiple hospital admissions for acute on chronic kidney injury, history of bulimia, history of alcoholism in remission, chronic back pain with chronic narcotic use, chronic metabolic acidosis, underweight with BMI 15.2, GERD who presents emergency department at [facility] [place] [place] today with complaints of 24-48 hours of feeling fatigued, malaise and some mild nausea. Patient reports that she has 6 grandchildren at home but she denies any fevers. One episode of chills yesterday but notes that it was also cold in the evening.. She has not had any cough upper respiratory symptoms. She denies any dysuria hematuria. She does reports some mild nausea without any vomiting. Because she has been feeling unwell her oral intake overall has declined significantly in the last 24 hr to 48. History Information - Allergies/Home Medication List Allergies/Adverse Reactions: Sulfa (Sulfonamide Antibiotics) Allergy (Mild, Verified 03/24/18 19:07) Other-Enter Comments Home Medications: Diphenoxylate HCl/Atrop Sulf [Lomotil Tab (*)] 1 tab PO DAILY PRN 03/02/18 [ Last Taken 03/01/18] FLUoxetine [Prozac 10 MG (*)] 20 mg PO DAILY 03/02/18 [Last Taken 03/01/18] Hydrocodone/Acetaminophen [[place] 5/325 (*)] 1 each PO Q4 PRN 03/02/18 [Last Taken 03/01/18] Mirtazapine 15 mg PO HS 03/02/18 [Last Taken 03/01/18] Propranolol HCl [Inderal 10mg (*)] 10 mg PO DAILY PRN 03/02/18 [Last Taken 02/26] hydrOXYzine HCL [hydrOXYzine HCL (RX)] 25 mg PO BID 03/02/18 [Last Taken Unknown ] I have personally reviewed and updated: family history, medical history, social history, surgical history - Past Medical History Additional medical history: bulimia, chronic metabolic alkalosis, episodic KENDRICK on CKD (stage 2), HTN, chronic back pain, suspected factitious disorder, anemia of chronic disease, underweight with BMI of 15.4 - Surgical History Additional surgical history: ankle surgery - Family History Additional family history: no h/o renal disease - Social History Smoking Status: Current every day smoker (Patient reports that she has decreasing her usage in down to 1 cigarette per day.) Alcohol Use: None Drug Use: None Additional social history: lives at home with daughter and 2 grandchildren. Cor status-full. Review of Systems Review of Systems: ROS: 10pt was reviewed & negative except for what was stated in HPI & below Constitutional: Reports: malaise, weakness (GENERALIZED). Denies: chills, fever , recent illness EENMT: Reports: no symptoms Cardiac: Reports: no symptoms Respiratory: Reports: no symptoms Gastrointestinal: Reports: nausea. Denies: vomitting, black stools, abdominal pain, diarrhea Genitourinary: Reports: no symptoms Muscolosketal: Reports: back pain Skin: Reports: no symptoms Neurological: Reports: headache, weakness (GENERALIZED) Hematologic/Lymphatic: Reports: no symptoms Physical Exam Physical Exam: Selected Entries 03/24/18 19:08 Blood Pressure Automatic Method Heart Rate 95 Respiratory 16 Rate O2 Sat (%) 90 L Temperature (C) 36.7 C Blood Pressure 105/63 Mean Arterial 77 Pressure (MAP) O2 Delivery Room Air Mode Temperature Oral Source Temp Pulse Resp BP Pulse Ox 36.7 C 82 16 114/67 95 03/24/18 22:25 03/24/18 22:25 03/24/18 22:25 03/24/18 22:25 03/24/18 22:25 O2 (L/minute) 2 Constitutional: chronically ill appearing, cachectic, other (NAD. Patient is ambulating in the room independently.), No appears nourished Eyes: PERRL (Decreased reactivity light bilaterally but symmetric.), EOMI, No scleral injection Ears, Nose, Mouth, Throat: moist mucous membranes, No oral thrush, No poor dentition (Edentulous with denture in place.), No hard of hearing Cardiovascular: regular rate and rhythym, no murmur, rub, or gallop, No edema Peripheral Pulses: 1+: dorsalis-pedis (R), dorsalis-pedis (L) Respiratory: no respiratory distress, no rales or rhonchi, clear to auscultation , No expiratory wheeze, No inspiratory crackles, No respiratory distress Gastrointestinal: normoactive bowel sounds, soft, non-tender abdomen, no palpable masses, No tenderness, No distension Genitourinary: no bladder tenderness, No roman in urethra Skin: warm, normal color, no rashes or abrasions, other (Diffuse photo damage and patient is tanned. Dry skin.) Musculoskeletal: other (Moves all extremities upper lower symmetric.), No generalized weakness (Patient sits up independently was ambulating when he came in the room.) Neurologic: AAOx3, sensation intact bilaterally, other (Grossly nonfocal.), No facial droop Psychiatric: interacting appropriately, not anxious, not encephalopathic, thought process linear, other (Patient thought process content and questions are appropriate. The patient is pleasant and cooperative.) Lab Data & Imaging Review POC Sodium 143 mEq/L (135-145) 03/24/18 19:34 POC Potassium 3.8 mEq/L (3.3-5.0) 03/24/18 19:34 POC Chloride TNP 03/24/18 19:34 POC Total CO2 36 mEq/L (22-31) H 03/24/18 19:34 POC BUN 60 mg/dL (7-23) H 03/24/18 19:34 POC Creatinine 5.4 mg/dL (0.6-1.0) H 03/24/18 19:34 POC Glucose 114 mg/dL (70-100) H 03/24/18 19:34 POC Calcium 10.1 mg/dL (8.5-10.4) 03/24/18 19:34 POC Total Bilirubin 0.7 mg/dL (0.1-1.4) 03/24/18 19:34 POC AST 29 IU/L (14-46) 03/24/18 19:34 POC ALT 19 IU/L (9-52) 03/24/18 19:34 POC Alk Phosphatase 92 IU/L (38-126) 03/24/18 19:34 POC Total Protein 8.1 g/dL (6.3-8.2) 03/24/18 19:34 POC Albumin 4.0 g/dL (3.5-5.0) 03/24/18 19:34 Assessment & Plan Assessment: A 62-year-old female with past medical history significant for chronic kidney disease with multiple hospitalizations for acute on chronic kidney disease, history of bulimia, history of alcohol dependence, chronic pain, chronic narcotic use, metabolic alkalosis who presents from [facility] [place] [place] ED with complaints of generalized weakness malaise and some nausea. #[id number] renal failure (Acute) stage 3/4- patient's baseline creatinine appears to be 1.5-2.0. The patient does endorse decreased oral intake in the last 24-48 hours. This is likely prerenal in nature. She denies any acute new medications. She reports that she had been eating and drinking and Alberto up until yesterday. Patient will be receiving some gentle IV fluid hydration overnight and will also encourage oral intake as tolerated. Will plan to repeat a BMP in the morning. #Dehydration - secondary to decreased oral intake. IV fluid overnight as noted above. Encourage oral intake. #anxiety/depression - continue fluoxetine, mirtazepine, #chronic pain - patient notes that she has recently diagnosed with bilateral SI joint issues. She reports taking [place] [address] tab p.r.n.. #tobacco dependence - patient reports declining use and down to 1 cigarette per day. # underweight with BMI 15.2 - patient with history of bulimia. She is denying relapse but has not had significant oral intake in the last 24 hr as noted above. # anemia of chronic disease - H&H stable. No evidence of active bleeding. FEN - normal saline IV fluid supplementation overnight as noted above. At this time electrolytes are within normal limits and did not require any supplementation or treatment. Advance diet as tolerated. PPX-SCDs. Hold this evening's heparin as patient is still ambulating quite well and anticipate short hospital stay. If patient should require a on additional days we will reconsider a use of heparin. COR - FULL Dispo -patient admitted inpatient status on PCU floor for close cardiac monitoring and electrolytes. Anticipate greater than 2 midnight stay given the severity of her renal insufficiency and historical recovery from previous hospital stays.
[2018-03-24] MEDS ORDERED: LIDOCAINE 4%/MENTHOL 1% PATCH TD SCH (23:45)
[2018-03-25] MEDS: HEPARIN 5,000 UNIT/0.5 ML INJ SC SCH ×3 (06:19→21:35)
[2018-03-25] MEDS: NS 1,000 ML IV SCH ×3 (08:23→17:47)
[2018-03-25] MEDS: CALCIUM CARBONATE 500 MG CHEWABLE TAB PO SCH ×3 (08:24→17:13)
[2018-03-25] MEDS: FLUoxetine 20 MG CAP PO SCH (08:24)
[2018-03-25] MEDS: HYDROCODONE/APAP 5/325 TAB PO PRN ×4 (08:41→21:35)
--- NOTE | 2018-03-25 08:50 | ASMTLACE ---
[place] Acuity / Level of Answers: Yes Care: Did the patient have an inpatient admission? Comorbidities - select Answers: Moderate or severe liver all that apply or renal disease Opioid dependence / Chronic pain Other Notes: HTN # of Emergency department Answers: 3-4 visits in the last 6 months Social determinants Answers: History of substance abuse (ETOH, street drugs, prescription drugs, etc.) Mental health diagnosis (anxiety, depression, pers onality disorders, etc.) Score: 21 Date Signed: 03/25/2018 08:49 AM Electronically Signed By:Anne Garcia
[2018-03-25] MEDS ORDERED: PROPRANOLOL HCL 10 MG TAB PO SCH (09:00)
--- NOTE | 2018-03-25 09:25 | PDMN ---
Medical Necessity Medical necessity: Pt meets IP criteria per MD & MCG [id number]; est los >2 mn for eval/tx of acute on chronic renal failure w/POC creatinine of 5.4, chronic metabolic acidosis & dehydration secondary to decreased oral intake; admit for close cardiac monitoring, IVFs, follow-up labs & Dietary consult; hx bulimia, HTN, suspected factitious disorder & anemia; per H&P & order 03/24/18
[2018-03-25] MEDS: ONDANSETRON DISINTEGRATING 4 MG TAB PO PRN (11:01)
[2018-03-25] MEDS ORDERED: PATCH REMOVAL 1 EA PATCH TD SCH (12:00)
--- NOTE | 2018-03-25 12:59 | HOSPPROG ---
Hospitalist Progress Note Assessment/Plan: 62yo F with CKD (baseline Cr 1.5), bulimia, chronic pain on opioids, 3 recent hospitalizations for renal insufficiency presents with generalized weakness found to have KENDRICK. She denies that this was intentional restriction of PO intake. #KENDRICK on CKD: Cr 4.6 up from 1.5. Suspect prerenal/dehydration. UA bland. She has established with [facility] as outpatient. No indication for HD. - IVF, avoid nephrotoxins. #Acute hypoxemic respiratory insufficiency: On 2L. Occasional desats. Lungs clear. Unclear etiology. - Wean as tolerates #Low BP: Perfusing ok. This is normal given her stature. Holding propranolol which she only uses PRN at home. #Metabolic alkalosis: Chronic. Monitor with renal function. #Hyponatremia: Mild, hypovolemic. Giving IVF as above, recheck in AM. #Anxiety/depression, h/o bulimia: Has previously been eval'd by psych team. She denies that this was intentional restriction of PO intake. Continue home fluoxetine, mirtazepine. #Chronic pain: Related to SI joint. Has outpt pain doc. Continue home norco prn. #Underweight, protein calorie malnutrition: BMI 15 #Anemia of chronic disease: H/H stable Diet: regular VTE ppx: SQH Code: full Dispo: Subjective: Feeling ok this morning. She was surprised how bad her creatinine was. She denies that this was intentional. She just didn't feel well and didn't have appetite. No n/v/d. Mood has been good. No recent stressors at home. Objective: Vital Signs Temp Pulse Resp BP Pulse Ox 36.6 C 73 16 87/51 L 97 03/25/18 11:08 03/25/18 11:08 03/25/18 11:08 03/25/18 11:08 03/25/18 11:08 Laboratory Results 03/25/18 03:39 03/24/18 03/25/18 03/26/18 05:59 05:59 05:59 Intake Total 1700 Output Total 200 Balance 1500 - Physical Exam Constitutional: no apparent distress, appears nourished, not in pain, other ( thin) Eyes: PERRL, anicteric sclera, EOMI Ears, Nose, Mouth, Throat: moist mucous membranes, hearing normal, ears appear normal, no oral mucosal ulcers Cardiovascular: regular rate and rhythym, no murmur, rub, or gallop Respiratory: no respiratory distress, no rales or rhonchi, clear to auscultation Gastrointestinal: normoactive bowel sounds, soft, non-tender abdomen, no palpable masses Skin: no rashes or abrasions, no fluctuance, no induration Musculoskeletal: full muscle strength, no muscle tenderness, normal joint ROM Neurologic: AAOx3, sensation intact bilaterally Psychiatric: interacting appropriately, not anxious, not encephalopathic, thought process linear ICD10 Worksheet Patient Problems: Problems Problem Status Onset [id number] renal failure Acute KENDRICK (acute kidney injury) Acute KENDRICK (acute kidney injury) Acute Acute kidney injury superimposed on chronic kidney disease Acute Acute renal failure Acute Dehydration Acute Diarrhea Acute Hypokalemia Acute Metabolic alkalosis Acute
[2018-03-25] MEDS: LIDOCAINE 4%/MENTHOL 1% PATCH TD SCH (15:28)
--- NOTE | 2018-03-25 15:40 | ASMTCMCOM ---
CM Note CM Note Notes: 03/25/2018 Case Management Note Pt admitted for acute on chronic renal failure. This is 5th admission since October to [facility]. Discussed frequent admissions with pt. In the past case management has set up appointments the following day with [facility] that pt did not follow through with. Pt states "I don't remember those". Pt reports home situation is calmer with her daughter, her daughter has a working vehicle but is now unemployed. Pt is no longer the main caregiver for her grandchildren d/t daughter's unemployment status. Faxed referral to [facility] requesting Behavioral Health RN, [place] and Palliative Care. [facility] accepted pt via [employer]. Pato to visit pt in the morning. Referred to [facility]. Case Management d/c poc: [facility] Behavioral Health RN + [facility] Palliative Case Management to follow. Date Signed: 03/25/2018 03:39 PM Electronically Signed By:Sandrita Smith RN
[2018-03-25] MEDS: MIRTAZAPINE 15 MG TAB PO SCH ×2 (21:35)
[2018-03-25] MEDS: PATCH REMOVAL 1 EA PATCH TD SCH (21:39)
[2018-03-26] MEDS: HYDROCODONE/APAP 5/325 TAB PO PRN ×3 (04:09→19:38)
[2018-03-26] MEDS: NS 1,000 ML IV SCH ×2 (04:09→13:59)
[2018-03-26] MEDS: HEPARIN 5,000 UNIT/0.5 ML INJ SC SCH ×3 (06:51→21:43)
[2018-03-26] MEDS: CALCIUM CARBONATE 500 MG CHEWABLE TAB PO SCH ×3 (08:35→17:39)
[2018-03-26] MEDS: FLUoxetine 20 MG CAP PO SCH (08:35)
[2018-03-26] MEDS: LIDOCAINE 4%/MENTHOL 1% PATCH TD SCH (08:35)
[2018-03-26] MEDS: NICOTINE 14 MG/24 HR PATCH TD SCH (11:56)
[2018-03-26] MEDS: TRIAMCINOLONE 0.1% 15 GM CRTUBE TP SCH ×2 (13:59→21:47)
--- NOTE | 2018-03-26 14:24 | HOSPPROG ---
Hospitalist Progress Note Assessment/Plan: 62yo F with CKD (baseline Cr 1.5), bulimia, chronic pain on opioids, 3 recent hospitalizations for renal insufficiency presents with generalized weakness found to have KENDRICK. She denies that this was intentional restriction of PO intake. #KENDRICK on CKD: Improving with hydration. Cr 3.6 today down from 4.6. UA bland. IVF , avoid nephrotoxins. #Acute hypoxemic respiratory insufficiency: Resolved. Likely atelectasis. #Low BP: Perfusing ok. This is normal given her stature. Holding propranolol which she only uses PRN at home. #Severe protein calorie malnutrition: BMI 15 #Metabolic alkalosis: Chronic. Monitor with renal function. #Hyponatremia: Resolved. Mild, hypovolemic. #Anxiety/depression, h/o bulimia: Has previously been eval'd by psych team. She denies that this was intentional restriction of PO intake. Continue home fluoxetine, mirtazepine. #Chronic pain: Related to SI joint. Has outpt pain doc. Continue home norco prn. #Anemia of chronic disease: H/H stable Diet: regular VTE ppx: SQH Code: full Dispo: Continue inpatient for IVF and monitoring of renal function. She will dc with outpatient palliative care, behavioral health RN, and social work coordinator which she is agreeable to. Subjective: Energy level improving. Has a bit of an appetite. Minimal nausea, denies vomiting or diarrhea. Objective: Vital Signs Temp Pulse Resp BP Pulse Ox 36.7 C 67 18 92/55 L 82 L 03/26/18 12:00 03/26/18 12:00 03/26/18 12:00 03/26/18 12:00 03/26/18 12:00 Laboratory Results 03/26/18 03:25 03/25/18 03/26/18 03/27/18 05:59 05:59 05:59 Intake Total 1700 2768 Output Total 200 1401 Balance 1500 1367 - Physical Exam Constitutional: no apparent distress, appears nourished, not in pain, other ( thin) Eyes: PERRL, anicteric sclera, EOMI Ears, Nose, Mouth, Throat: moist mucous membranes, hearing normal, ears appear normal, no oral mucosal ulcers Cardiovascular: regular rate and rhythym, no murmur, rub, or gallop Respiratory: no respiratory distress, no rales or rhonchi, clear to auscultation Gastrointestinal: normoactive bowel sounds, soft, non-tender abdomen, no palpable masses Skin: no rashes or abrasions, no fluctuance, no induration Musculoskeletal: full muscle strength, no muscle tenderness, normal joint ROM Neurologic: AAOx3, sensation intact bilaterally Psychiatric: interacting appropriately, not anxious, not encephalopathic, thought process linear ICD10 Worksheet Patient Problems: Problems Problem Status Onset [id number] renal failure Acute KENDRICK (acute kidney injury) Acute KENDRICK (acute kidney injury) Acute Acute kidney injury superimposed on chronic kidney disease Acute Acute renal failure Acute Dehydration Acute Diarrhea Acute Hypokalemia Acute Metabolic alkalosis Acute
[2018-03-26] MEDS: MIRTAZAPINE 15 MG TAB PO SCH (21:43)
[2018-03-26] MEDS: PATCH REMOVAL 1 EA PATCH TD SCH (21:45)
[2018-03-27] MEDS: ONDANSETRON DISINTEGRATING 4 MG TAB PO PRN (01:49)
[2018-03-27] MEDS: HYDROCODONE/APAP 5/325 TAB PO PRN ×3 (03:45→14:04)
[2018-03-27] MEDS: HEPARIN 5,000 UNIT/0.5 ML INJ SC SCH ×2 (06:13→14:04)
[2018-03-27] MEDS ORDERED: POTASSIUM CL 20 MEQ TAB PO ONE (06:47)
[2018-03-27] MEDS: CALCIUM CARBONATE 500 MG CHEWABLE TAB PO SCH ×2 (07:58→12:44)
[2018-03-27] MEDS: FLUoxetine 20 MG CAP PO SCH (07:59)
[2018-03-27] MEDS: LIDOCAINE 4%/MENTHOL 1% PATCH TD SCH (07:59)
[2018-03-27] MEDS: NICOTINE 14 MG/24 HR PATCH TD SCH (07:59)
[2018-03-27] MEDS: TRIAMCINOLONE 0.1% 15 GM CRTUBE TP SCH (08:02)
[2018-03-27] MEDS: NS 1,000 ML IV SCH (09:37)
[2018-03-27 11:45] VITALS: BP 105/63
--- NOTE | 2018-03-27 12:44 | PDDCSUM ---
Discharge Summary Discharge Summary: Date of Admission: 03/24/2018 Date of Discharge: 03/27/2018 Consultants: none Discharge Diagnoses: 1. KENDRICK on CKD 2. Severe protein calorie malnutrition 3. Anxiety, depression 4. Chronic metabolic alkalosis 5. Acute hypoxemia, resolved 6. Hyponatremia, resolved 7. Chronic pain 8. Anemia of chronic disease 9. Tobacco use Brief Hospital Course: 62yo F with CKD (baseline Cr 1.5), bulimia/malnutrition, chronic pain on norco, 3 recent hospitalizations for renal insufficiency presents with generalized weakness found to have KENDRICK. She denies that this was intentional restriction of PO intake (as in past hospitalizations) that lead to dehydration. Nonetheless, her creatinine improved with IVF and increase in PO (Cr 4.6 on admit, 2.8 on discharge, baseline 1.5). UA was completely bland. She follows with [facility] and will see them soon. Notably, we set her up with outpatient palliative care and a behavioral health RN given her frequent re-admissions. She is excited about this plan. Medications: Please refer to EMR for complete list. Follow Up Plan: 1. BMP within a week or so 2. Follow up as planned with [facility] 3. She is getting set up with home health behavioral health RN, palliative care Physical Exam: Vitals reviewed and stable. Alert and oriented, no focal neuro deficits. Very thin. RRR without m/r/g. Lungs clear. Scaphoid abdomen that is soft, nontender. No LE edema. No rashes.
--- NOTE | 2018-03-27 13:59 | PDIAF ---
- Diagnosis Code Status: Full Code - Medication Management Discharge Medications: Medications to Continue on Transfer Diphenoxylate HCl/Atrop Sulf [Lomotil Tab (*)] 1 tab PO DAILY PRN 03/02/18 [ Last Taken 03/01/18] Hydrocodone/Acetaminophen [[place] 5/325 (*)] 1 each PO Q4 PRN 03/02/18 [Last Taken 03/25/18 00:00] Mirtazapine 15 mg PO HS 03/02/18 [Last Taken 03/25/18 00:00] Propranolol HCl [Inderal 10mg (*)] 10 mg PO DAILY PRN 03/02/18 [Last Taken 03/24 16:00] hydrOXYzine HCL [hydrOXYzine HCL (RX)] 25 mg PO BID 03/02/18 [Last Taken 16:00] FLUoxetine [Prozac 20 MG (*)] 20 mg PO DAILY 03/25/18 [Last Taken 03/24/18] Ondansetron Odt [Zofran Odt 4 mg (*)] 4 - 8 mg PO BID PRN 03/25/18 [Last Taken 03/24/18 16:00] Diazepam [Valium 2 MG (*)] 2 mg PO Q8H PRN #5 tab 03/27/18 [Last Taken Unknown] Discharge Medications: Refer to the Discharge Home Medication list for PRN reason. - Orders Services needed: Home Care, Registered Nurse (behavioral health RN), [employer] Home Care Face to Face: I certify that this patient was under my care and that I had the required [id number] encounter meeting the encounter requirements on the discharge day. My findings support the fact that the patient is homebound as defined in Home Care Face to Face Continued: CMS Chapter 7 Medicare Benefits Manual 30.1.1 , The condition of the patient is such that there exists a normal inability to leave home and consequently, leaving home would require a considerable and taxing effort. Additional Instructions: Here are your discharge instructions: 1. Your creatinine (marker of kidney function) has continued to improve which is good news. 2. You should see either your primary care doctor or attorney general in 1-2 weeks to follow up and make sure your kidney numbers are getting back to normal. 3. Congratulations on trying to quit smoking. Nicotine patches can be obtained over the counter or you can call 0-875-CGPJ-NOW to get free smoking cessation supplies. 4. I have given you just a few valium to help cope with anxiety of getting settled in at home. This is not a good active directory specialist medication and I strongly advise that you don't use these long-term. 5. Otherwise, no medication changes during this visit. - Follow Up Care Current Providers and Referrals: Ignacio Caceres MD [Primary Care Provider] - As per Instructions
--- NOTE | 2018-03-27 14:24 | ASMTDCNOTE ---
Case Management Discharge Discharge Order Complete? Answers: Yes Patient to Obtain Answers: via Family Medications Transportation Arranged Answers: [facility] W[facility] Transport will Pick (Date 03/27/2018 04:30 PM & Time) EMTALA Complete Answers: No Case Management Transport Answers: Yes Form Complete Faxed Final Orders Answers: Yes Agency/Facility Transfer Answers: Yes Report Printed & Faxed to Receiving Agency Family Notified Answers: No Discharge Comments Notes: Pts case discussed w/ TIMUR Zaman and Dr. Remy. Pt is being discharged today. DC orders sent to [facility] for HC and palliative services. CM arranged for [facility] w[facility]c to pick pt up. CM provided [facility] w/ pts medicaid ID number to bill. CM available for changes. Plan: [facility]; ISIDRA RN and SWer with [facility] palliative services Date Signed: 03/27/2018 02:23 PM Electronically Signed By:AMIRA Gaxiola
--- NOTE | 2018-03-27 16:23 | ASDISCHSUM ---
Discharge Information Plan Status:Home with Home Health Medically Cleared to Leave:03/27/2018 Discharge Date:03/27/2018 04:05 PM D/C Disposition:Home Health Service [facility] D/C Disposition:Home, Routine, Self-Care Projected Discharge Date:03/27/2018 11:00 AM Transportation at D/C: Discharge Delay Reason: Follow-Up Date:03/27/2018 11:00 AM Discharge Slot: Final Diagnosis: Placement Information Referral Type:*Home Health Care Services Referral ID:[id number] Provider Name:[facility] Address 1:[address] Address 2: City:[place] Selection Factors: State:[place] Referral Type:Palliative Care Referral ID:[id number] Provider Name:[facility] Address 1:[address] Address 2: [facility]:[place] Selection Factors: State:[place] Patient Contact Information Contact Name:GEE Relationship:Daughter Address:[address] City:[facility] Phone: State/Zip Code:[place] [address] Email: Financial Information Financial Class:Medicare Primary Plan Desc:MEDICARE INPATIENT Primary Plan Number:[id number] Secondary Plan Desc:[place] Secondary Plan Number:[id number] Assessment Information LACE LACE Acuity / Level of Answers: Yes Care: Did the patient have an inpatient admission? Comorbidities - select Answers: Moderate or severe liver all that apply or renal disease Opioid dependence / Chronic pain Other Notes: HTN # of Emergency department Answers: 3-4 visits in the last 6 months Social determinants Answers: History of substance abuse (ETOH, street drugs, prescription drugs, etc.) Mental health diagnosis (anxiety, depression, pers onality disorders, etc.) Score: 21 Date Signed: 03/25/2018 08:49 AM Electronically Signed By:Anne Garcia [facility] CM Progress Note CM Note CM Note Notes: 03/25/2018 Case Management Note Pt admitted for acute on chronic renal failure. This is 5th admission since October to [facility]. Discussed frequent admissions with pt. In the past case management has set up appointments the following day with Alverto Thao that pt did not follow through with. Pt states "I don't remember those". Pt reports home situation is calmer with her daughter, her daughter has a working vehicle but is now unemployed. Pt is no longer the main caregiver for her grandchildren d/t daughter's unemployment status. Faxed referral to [facility] requesting Behavioral Health RN, VERONA and Palliative Care. [facility] accepted pt via [employer]. Pato to visit pt in the morning. Referred to [facility]. Case Management d/c poc: [facility] Behavioral Health RN + [facility] Palliative Case Management to follow. Date Signed: 03/25/2018 03:39 PM Electronically Signed By:Sandrita Smith RN Case Management Discharge Plan Note Case Management Discharge Discharge Order Complete? Answers: Yes Patient to Obtain Answers: via Family Medications Transportation Arranged Answers: [facility] Transport will Pick (Date 03/27/2018 04:30 PM & Time) THANHALA Complete Answers: No Case Management Transport Answers: Yes Form Complete Faxed Final Orders Answers: Yes Agency/Facility Transfer Answers: Yes Report Printed & Faxed to Receiving Agency Family Notified Answers: No Discharge Comments Notes: Pts case discussed w/ TIMUR Zaman and Dr. Remy. Pt is being discharged today. DC orders sent to [facility] for HC and palliative services. CM arranged for [facility] w/c to pick pt up. CM provided [facility] w/ pts medicaid ID number to bill. CM available for changes. Plan: [facility]; RN and SWer with [facility] palliative services Date Signed: 03/27/2018 02:23 PM Electronically Signed By:AMIRA Gaxiola [facility] CM Progress Note CM Note CM Note Notes: Pts daughter came to pick pt up. CM canceled [facility] transportation. Date Signed: 03/27/2018 04:19 PM Electronically Signed By:AMIRA Gaxiola Intervention Information Intervention Type:*IM-Signed Date of Service:03/27/2018 02:03 PM Patient Type:Inpatient Staff Member:Anne Garcia Hours: Discipline: Severity: Comment:
== END 2018-03-27 16:05 | disposition home health service (06) | DRG 682 ==
LOC: CED 18:59 → CEDHOLD 20:05 → F2W 22:10
PROVIDERS: ADMIT Internal Medicine; ATTEND Family Medicine
DX: N17.9 Acute kidney failure, unspecified (principal); E43 Unspecified severe protein-calorie malnutrition; E87.3 Alkalosis; E87.1 Hypo-osmolality and hyponatremia; E86.0 Dehydration; N18.9 Chronic kidney disease, unspecified; F41.9 Anxiety disorder, unspecified; F32.9 Major depressive disorder, single episode, unspecified; R09.02 Hypoxemia; G89.29 Other chronic pain; D63.1 Anemia in chronic kidney disease; F17.200 Nicotine dependence, unspecified, uncomplicated
CPT/HCPCS: 80053-PO; J1644; J3480

== ENCOUNTER 2018-04-22 13:43 | Emergency (ER) | payer OTHER, MEDICAID ==
[2018-04-22] MEDS ORDERED: NS 1,000 ML IV ONE ×2 (14:07→17:15)
--- NOTE | 2018-04-22 14:10 | EDPHY ---
H & P Stated Complaint: Kidney issues high creatnine , referred by handkerchief presser - Personal History Current Tetanus/Diphtheria Vaccine: Unsure Current Tetanus Diphtheria and Acellular Pertussis (TDAP): Unsure Tetanus Vaccine Date: UNSURE - Medical/Surgical History Hx Asthma: No Hx Chronic Respiratory Disease: No Hx Diabetes: No Hx Cardiac Disease: No Hx Renal Disease: Yes Hx Cirrhosis: No Hx Alcoholism: No Hx HIV/AIDS: No Hx Splenectomy or Spleen Trauma: No Other PMH: kidney failure 2013,anxiety and HTN. surg-ankle,tubal and oral surgery, chronic back pain, depression. - Social History Smoking Status: Current every day smoker Time Seen by Provider: 04/22/18 13:53 HPI/ROS: CHIEF COMPLAINT: Elevated creatinine History by patient HISTORY OF PRESENT ILLNESS: 62-year-old woman with history of chronic renal failure, bulimia, alcohol abuse and recent hospitalization last month for acute on chronic renal failure presents today stating that her handkerchief presser called her telling her she needed to go to the ER for IV fluids because her creatinine was elevated up to 3. Patient states that she has been drinking plenty of fluids. She states that she has cut down in her alcohol use and has only had 1 or 2 drinks every few nights. She denies any vomiting or diarrhea. She admits to constipation. She says that she has been eating more than usual. She is otherwise feeling fairly well and says she was surprised when they called her with these results. She has noted frequent urination but states that she is also drinking lots of water and 58 juice. She denies any dysuria, urgency or hematuria. She states that her blood pressure always runs low and has been as low as the 80s at home. Her PCP recently lowered her dose of propanolol to 10 but she has not been taking it because her blood pressures been so low. She denies any fever chills. REVIEW OF SYSTEMS: As in HPI, and all other systems reviewed and are negative (Nancy Guaman) - Physical Exam Exam: General Appearance: Alert, cachectic, nontoxic Head: normocephalic, atraumatic Eyes: Pupils equal and round, reactive to light, no pallor or injection. Mouth: Mucous membranes moist. Oropharynx clear Neck: No bony tenderness, full range of motion Respiratory: Normal, effort, lungs are clear to auscultation. No wheezes, rales or rhonchi. Cardiovascular: Regular rate and rhythm. S1, S2, no murmurs, gallops or rubs appreciated Gastrointestinal: Abdomen is soft and nontender, no masses, bowel sounds normal. Back: No CVA tenderness, no bony tenderness Neurological: Awake, alert and oriented x 3, cranial nerves 2-12 intact, no pronator drift, normal gait, Skin: Warm and dry, no rashes. Musculoskeletal: No deformities or tenderness. Extremities: full range of motion, no edema, DP2+ bilat Psychiatric: Patient has normal affect, there is no agitation. (Nancy Guaman) Constitutional: Initial Vital Signs Temperature (C) 36 C 04/22/18 13:48 Heart Rate 99 04/22/18 13:48 Respiratory Rate 16 04/22/18 13:48 Blood Pressure 104/76 04/22/18 13:48 O2 Sat (%) 96 04/22/18 13:48 O2 Delivery Mode Room Air Allergies/Adverse Reactions: Sulfa (Sulfonamide Antibiotics) Allergy (Mild, Verified 04/22/18 13:52) Other-Enter Comments Home Medications: Medication Instructions Recorded Diphenoxylate HCl/Atrop Sulf 1 tab PO DAILY PRN 03/02/18 [Lomotil Tab (*)] Hydrocodone/Acetaminophen [[place] 1 each PO Q4 PRN 03/02/18 5/325 (*)] Mirtazapine 15 mg PO HS 03/02/18 Propranolol HCl [Inderal 10mg (*)] 10 mg PO DAILY PRN 03/02/18 hydrOXYzine HCL [hydrOXYzine HCL 25 mg PO BID 03/02/18 (RX)] FLUoxetine [Prozac 20 MG (*)] 20 mg PO DAILY 03/25/18 Ondansetron Odt [Zofran Odt 4 mg 4 - 8 mg PO BID PRN 03/25/18 (*)] Medical Decision Making ED Course/Re-evaluation: [age] old woman with longstanding history of chronic kidney disease related to her bulimia, fluid and calor restriction and alcohol use returns today with elevated creatinine. Patient is essentially asymptomatic today with stable vital signs. She was given a L fluid labs were checked. Her potassium is within normal limits at 3 but her creatinine is elevated at 3.7. Urine dip was positive for leukocyte esterase but nitrite negative. I sent this for culture but would not immediately start the patient on antibiotics because she is not clearly symptomatic. I discussed the case with Dr. Sachin martins, her handkerchief presser, who recommends repeating a creatinine after her 2nd L of fluid and if it is still elevated the patient should be admitted for further evaluation of her acute on chronic renal failure since the cause of her repeatedly elevated creatinine is unclear. I will transfer care to Dr. Young pending results of repeat creatinine after IV hydration. (Nancy Guaman) Patient's repeat creatinine after IV fluids is 3.4 A seems to be the patient's recent baseline. Patient is not willing to be admitted for further evaluation at this time a so recommend that she continues drinking plenty of fluids at home with close follow up with her primary care physician and handkerchief presser as an outpatient. I do not appreciate initially that her potassium had dropped to 2.6 after 2 L of saline here and I spoke with the patient over the phone after she returned home relating this lab finding. The patient relates that she has over-the- counter supplemental potassium and also eats bananas daily as she has had low potassium in the past and states that she will restart this regimen with plan to recheck her creatinine and electrolytes in 2 days on Friday through her handkerchief presser or primary care physician. (Sachin Young) - Data Points Laboratory Results: 04/22/18 04/22/18 04/22/18 16:08 14:14 14:00 POC Sodium 140 mEq/L mEq/L 141 mEq/L mEq/L (135-145) (135-145) POC Potassium 2.6 mEq/L L* mEq/L 3.5 mEq/L mEq/L (3.3-5.0) (3.3-5.0) POC Chloride 92.0 mEq/L L mEq/L 85.0 mEq/L L mEq/L (97-110) (97-110) POC Total CO2 30 mEq/L mEq/L 32 mEq/L H mEq/L (22-31) (22-31) POC BUN 63 mg/dL H mg/dL 71 mg/dL H mg/dL (7-23) (7-23) POC Creatinine 3.4 mg/dL H mg/dL 3.7 mg/dL H mg/dL (0.6-1.0) (0.6-1.0) POC Glucose 158 mg/dL H mg/dL 113 mg/dL H mg/dL (70-100) (70-100) POC Calcium 8.7 mg/dL mg/dL 9.9 mg/dL mg/dL (8.5-10.4) (8.5-10.4) POC Total Bilirubin 0.7 mg/dL mg/dL (0.1-1.4) POC AST 29 IU/L IU/L (14-46) POC ALT 17 IU/L IU/L (9-52) POC Alk Phosphatase 84 IU/L IU/L (38-126) POC Total Protein 7.6 g/dL g/dL (6.3-8.2) POC Albumin 4.0 g/dL g/dL (3.5-5.0) Urine RBC NONE SEEN /hpf /hpf (0-3) Urine WBC 1-3 /hpf /hpf (0-3) Ur Epithelial Cells TRACE /lpf /lpf (NONE-1+) Medications Given: Discontinued Medications Sodium Chloride (Ns) 1,000 mls @ 0 mls/hr IV ONCE ONE PRN Reason: Wide Open Stop: 04/22/18 14:08 Last Admin: 04/22/18 14:19 Dose: 1,000 mls Sodium Chloride (Ns) 1,000 mls @ 0 mls/hr IV ONCE ONE; Wide Open PRN Reason: Protocol Stop: 04/22/18 17:16 Last Admin: 04/22/18 15:05 Dose: 1,000 mls Point of Care Test Results: Chemistry 04/22/18 04/22/18 16:08 14:14 POC Sodium 140 mEq/L mEq/L 141 mEq/L mEq/L (135-145) (135-145) POC Potassium 2.6 mEq/L L* mEq/L 3.5 mEq/L mEq/L (3.3-5.0) (3.3-5.0) POC Chloride 92.0 mEq/L L mEq/L 85.0 mEq/L L mEq/L (97-110) (97-110) POC Total CO2 30 mEq/L mEq/L 32 mEq/L H mEq/L (22-31) (22-31) POC BUN 63 mg/dL H mg/dL 71 mg/dL H mg/dL (7-23) (7-23) POC Creatinine 3.4 mg/dL H mg/dL 3.7 mg/dL H mg/dL (0.6-1.0) (0.6-1.0) POC Glucose 158 mg/dL H mg/dL 113 mg/dL H mg/dL (70-100) (70-100) POC Calcium 8.7 mg/dL mg/dL 9.9 mg/dL mg/dL (8.5-10.4) (8.5-10.4) POC Total Bilirubin 0.7 mg/dL mg/dL (0.1-1.4) POC AST 29 IU/L IU/L (14-46) POC ALT 17 IU/L IU/L (9-52) POC Alk Phosphatase 84 IU/L IU/L (38-126) POC Total Protein 7.6 g/dL g/dL (6.3-8.2) POC Albumin 4.0 g/dL g/dL (3.5-5.0) Urine Dip Collection Date 04/22/18 Collection Time 14:10 Specific [place] (1.002-1.030) 1.015 PH (5.0-7.5) 8.5 Leukocytes (Negative) 1+ Nitrites (Negative) Negative Protein (Negative) Trace Glucose (Negative) Negative Ketones (Negative) Negative Urobilnogen (0.2-1.0 EU) 0.2 Bilirubin (Negative) Negative Blood (Negative) Negative Departure - Departure Disposition: Home, Routine, Self-Care Clinical Impression: Dehydration, Kidney disease Condition: Good Instructions: Dehydration (ED), Chronic Kidney Disease (ED) Additional Instructions: Diagnosis: Dehydration 2. Chronic kidney disease Plan: Drink plenty fluids Follow up with Dr. Francis, handkerchief presser as an outpatient. Call to make this appointment Return emergency department for any worsening symptoms despite plan of increase fluid intake. Also avoid any nonsteroidal anti-inflammatories as this could injury or kidney.- Referrals: Ignacio Caceres MD [Primary Care Provider] - As per Instructions Yash Francis MD [Medical Doctor] - As per Instructions
[2018-04-22 16:50] VITALS: BP 98/59
== END 2018-04-22 16:30 | disposition home or self-care (01) ==
LOC: CED 13:43
DX: E86.0 Dehydration (principal); R79.89 Other specified abnormal findings of blood chemistry; I12.9 Hypertensive chronic kidney disease with stage 1 through stage 4 chronic kidney disease, or unspecified chronic kidney disease; N18.9 Chronic kidney disease, unspecified; F50.2 Bulimia nervosa; F41.8 Other specified anxiety disorders; F17.200 Nicotine dependence, unspecified, uncomplicated
CPT/HCPCS: 80048-PO; 80053-PO

== ENCOUNTER 2018-08-23 11:31 | Emergency (ER) | payer OTHER, MEDICAID ==
--- NOTE | 2018-08-23 12:12 | EDPHY ---
H & P Stated Complaint: fatigue and headache since Time Seen by Provider: 08/23/18 11:48 HPI/ROS: Chief Complaint: Headache, malaise, body aches, fatigue HPI: 63-year-old woman who has a history of chronic renal insufficiency is presenting with several days of fatigue, malaise, headache, body aches and chills. She did get a flu shot this year. Patient states symptoms began 3 days ago. She was seen by her doctor 4 days ago started on amoxicillin for sinusitis. Her headache has persisted with her sinusitis headache. She then developed body aches, has had chills. Did have some diarrhea 3 days ago. Has been drinking fluids but is concerned that she might have worsening renal function because of dehydration which she has a history of. Some nausea but no vomiting. No diarrhea for 2 days. No chest pain or shortness of breath. No cough. Has not checked her temperature at home. ROS: 10 systems were reviewed and were negative except those elements noted in the HPI. PMH: Chronic renal insufficiency Social History: No smoking, no alcohol, no recreational drug use Family History: non-contributory Physical Exam: Gen: Awake, Alert, No Distress HEENT: Nose: no rhinorrhea Eyes: PERRLA, EOMI Mouth: Moist mucosa Neck: Supple, no JVD Chest: nontender, lungs clear to auscultation Heart: S1, S2 normal, no murmur Abd: Soft, non-tender, no guarding Back: no CVA tenderness, no midline tenderness Ext: no edema, non-tender Skin: no rash Neuro: CN II-XII intact, Sensation grossly intact, Strength 5/5 in bilateral upper and lower extremities - Personal History Current Tetanus Diphtheria and Acellular Pertussis (TDAP): Yes Tetanus Vaccine Date: UNSURE - Medical/Surgical History Hx Asthma: No Hx Chronic Respiratory Disease: No Hx Diabetes: No Hx Cardiac Disease: No Hx Renal Disease: Yes Hx Cirrhosis: No Hx Alcoholism: No Hx HIV/AIDS: No Hx Splenectomy or Spleen Trauma: No Other PMH: kidney failure 2013,anxiety and HTN. surg-ankle,tubal and oral surgery, chronic back pain, depression. - Social History Smoking Status: Current every day smoker Constitutional: Initial Vital Signs Temperature (C) 36.5 C 08/23/18 11:40 Heart Rate 90 08/23/18 11:40 Respiratory Rate 16 08/23/18 11:40 Blood Pressure 145/94 H 08/23/18 11:40 O2 Sat (%) 97 08/23/18 11:40 O2 Delivery Mode Room Air Allergies/Adverse Reactions: Sulfa (Sulfonamide Antibiotics) Allergy (Mild, Verified 08/23/18 11:39) Other-Enter Comments Home Medications: Medication Instructions Recorded Hydrocodone/Acetaminophen [[place] 1 each PO Q4 PRN 03/02/18 5/325 (*)] Mirtazapine 30 mg PO HS 03/02/18 Propranolol HCl [Inderal 10mg (*)] 10 mg PO DAILY PRN 03/02/18 hydrOXYzine HCL [hydrOXYzine HCL 25 mg PO BID 03/02/18 (RX)] FLUoxetine [Prozac 20 MG (*)] 20 mg PO DAILY 03/25/18 AMOXICILLIN 08/23/18 Medical Decision Making ED Course/Re-evaluation: 63-year-old with a history of chronic renal insufficiency, creatinine last was 1.8 and often at 2. Presenting with general malaise. Creatinine today is 2.0, her baseline. Chemistries otherwise normal. CBC is normal. Urinalysis is negative. Influenza is negative. She is feeling better after a L of fluids. She has been taking Excedrin. When asked her about this she was not aware that it contained aspirin. I have cautioned her to not take any aspirin or nonsteroidals. Plan will be to give her g of Tylenol here. She will continue Tylenol at home and follow up with primary care physician. I do not see any evidence of a focal infection. Her renal function is at its baseline. She has gotten a L fluid here. I think she is appropriate for outpatient follow-up. - Data Points Laboratory Results: 08/23/18 12:08 POC Sodium 146 mEq/L H mEq/L (135-145) POC Potassium 3.8 mEq/L mEq/L (3.3-5.0) POC Chloride 98.0 mEq/L mEq/L (97-110) POC Total CO2 29 mEq/L mEq/L (22-31) POC BUN 53 mg/dL H mg/dL (7-23) POC Creatinine 2.1 mg/dL H mg/dL (0.6-1.0) POC Glucose 107 mg/dL H mg/dL (70-100) POC Calcium 10.0 mg/dL mg/dL (8.5-10.4) Medications Given: Discontinued Medications Sodium Chloride (Ns) 1,000 mls @ 0 mls/hr IV ONCE ONE; Wide Open PRN Reason: Protocol Stop: 08/23/18 12:29 Last Admin: 08/23/18 12:40 Dose: 1,000 mls Point of Care Test Results: CBC CBC Collection Date 08/23/18 CBC Collection Time 12:04 WBC 7.72 RBC 3.87 HGB 12.3 HCT 36.8 PLT 291 Neut # 5.6 Neut 72.6 LYMPH # 1.5 LYMPH 19.4 MCV 95.1 Chemistry 08/23/18 12:08 POC Sodium 146 mEq/L H mEq/L (135-145) POC Potassium 3.8 mEq/L mEq/L (3.3-5.0) POC Chloride 98.0 mEq/L mEq/L (97-110) POC Total CO2 29 mEq/L mEq/L (22-31) POC BUN 53 mg/dL H mg/dL (7-23) POC Creatinine 2.1 mg/dL H mg/dL (0.6-1.0) POC Glucose 107 mg/dL H mg/dL (70-100) POC Calcium 10.0 mg/dL mg/dL (8.5-10.4) Influenza PCR Flu Nasal Swab Collection Date 08/23/18 Flu Nasal Swab Collection Time 12:00 Influenza A Result Not Detected Influenza B Result Not Detected Departure - Departure Disposition: Home, Routine, Self-Care Clinical Impression: Myalgia Condition: Good Instructions: Musculoskeletal Pain (ED) Additional Instructions: Please do not take Excedrin or any other medications that contain aspirin or ibuprofen as these can do demonstrate kidneys. Is fine to take Tylenol, 1000 mg 3 times a day. Follow up with primary care physician in 2-3 days for re-evaluation. Referrals: Ignacio Caceres MD [Primary Care Provider] - As per Instructions
[2018-08-23] MEDS ORDERED: NS 1,000 ML IV ONE (12:28)
[2018-08-23] MEDS ORDERED: ACETAMINOPHEN 500 MG TAB PO ONE (13:31)
[2018-08-23 13:46] VITALS: BP 116/65
== END 2018-08-23 13:45 | disposition home or self-care (01) ==
LOC: CED 11:31
DX: M79.10 Myalgia, unspecified site (principal); R53.81 Other malaise; R51 Headache; R68.83 Chills (without fever); I12.9 Hypertensive chronic kidney disease with stage 1 through stage 4 chronic kidney disease, or unspecified chronic kidney disease; N18.9 Chronic kidney disease, unspecified; M54.9 Dorsalgia, unspecified; G89.29 Other chronic pain; F32.9 Major depressive disorder, single episode, unspecified; E86.9 Volume depletion, unspecified; Z88.2 Allergy status to sulfonamides
CPT/HCPCS: 80048-ER; 96360-ER; 99284-ER

== ENCOUNTER 2018-11-14 12:21 | Emergency (ER) | payer OTHER, MEDICAID | END 2018-11-14 14:20 | disposition home or self-care (01) | LOC: CED 12:21 ==